=== PATIENT | female | born 1970 | race Caucasian/White ===

== ENCOUNTER 2017-03-05 11:18 | Emergency (ER) | payer MEDICAID ==
[~2017-03-05] VITALS: Ht 170.2 cm; Wt 75.0 kg
[~2017-03-05 11:18] MED LIST: PHEN-873 PO
[2017-03-05 11:41] LABS: URINE HCG NEGATIVE (NEG)
[2017-03-05] MEDS ORDERED: LIDOcaine 2% 10ml TOPICAL JELLY (Urojet) MM ONE (11:50)
[2017-03-05 11:54] LABS: CLARITY,URINE CLEAR (Clear); COLOR,URINE YELLOW (Yellow); GLUCOSE, URINE NEGATIVE (Neg); KETONES,URINE TRACE mg/dl (Neg); LEUKOCYTE ESTERASE ,URINE NEGATIVE (Neg); NITRITES, URINE NEGATIVE (Neg); OCCULT BLOOD,URINE SMALL (Neg); PH,URINE 5.5 (4.8-8.0); PROTEIN,URINE NEGATIVE (Neg); UROBILINOGEN,URINE 0.2 E.U/dL (0.2-1.0)
[2017-03-05 11:57] LABS: UA COLLECTION TYPE CLN CATCH MIDSTREAM
[2017-03-05 12:00] LABS: BACTERIA,URINE NONE SEEN /HPF (Neg); RBC,URINE 0-2 /HPF (0-2); SQUAMOUS EPITHELIAL CELL,UR FEW /LPF (FEW); WBC,URINE NONE SEEN /HPF (0-4)
[2017-03-05 12:36] VITALS: BP 152/87
== END 2017-03-05 12:30 | disposition home or self-care (01) ==
LOC: ER 11:19
DX: N94.819 Vulvodynia, unspecified (principal); Z56.0 Unemployment, unspecified; Z59.0 Homelessness; Z60.2 Problems related to living alone
CPT/HCPCS: 81001; 81025; 99284; A6449

== ENCOUNTER 2018-05-20 08:12 | Inpatient (IN) | payer MEDICAID ==
[~2018-05-20] VITALS: Ht 170.2 cm; Wt 68.2 kg
[~2018-05-20 08:12] MED LIST changes: +PHEN-786 PO; -PHEN-873 PO
[2018-05-20] MEDS ORDERED: chlordiazePOXIDE 25mg capsule PO ONE (08:25)
[2018-05-20] MEDS ORDERED: LORazepam 2 mg/ml vial IV ONE ×2 (08:25→09:15)
[2018-05-20] MEDS ORDERED: normal saline 1000ML IV soln IVB ONE (08:25)
[2018-05-20 09:12] LABS: BASOPHILS % (AUTO) 0.4 % (0-1); EOSINOPHILS % (AUTO) 0.5 % (0-6); HEMATOCRIT 38.2 % (35.0-45.0); HEMOGLOBIN 13.2 g/dl (12.0-16.0); LYMPHOCYTES # (AUTO) 0.4 X10'3 (1.1-4.8); LYMPHOCYTES % (AUTO) 4.5 % (21-51); MEAN CORPUSCULAR HEMOGLOBIN 35.2 PG (27.0-31.0); MEAN CORPUSCULAR HGB CONC 34.5 g/dL (33.0-36.5); MEAN PLATELET VOLUME 8.1 FL (7.4-10.4); MONOCYTES # (AUTO) 0.4 X10'3 (0-0.9); MONOCYTES % (AUTO) 5.3 % (2-12); NEUTROPHILS # (AUTO) 7.3 X10'3 (1.8-7.7); NEUTROPHILS % (AUTO) 89.3 % (42-75); PLATELET COUNT 131 X10'3 (140-440); RED BLOOD COUNT 3.75 X10'6 (4.20-5.60); RED CELL DISTRIBUTION WIDTH 12.2 % (11.5-14.5); WHITE BLOOD COUNT 8.2 X10'3 (4.5-11.0)
[2018-05-20 09:28] LABS: ALANINE AMINOTRANSFERASE 75 U/L (12-78); ALBUMIN 3.7 G/DL (3.4-5.0); ALBUMIN/GLOBULIN RATIO 1.1 (1.1-1.5); ALKALINE PHOSPHATASE 93 IU/L (46-116); ANION GAP 13 (8-16); ASPARTATE AMINO TRANSFERASE 91 U/L (10-37); BILIRUBIN,TOTAL 1.3 MG/DL (0.1-1.0); BLOOD UREA NITROGEN 9 MG/DL (7-18); BUN/CREATININE RATIO 14.1 (6.6-38.0); CALCIUM 8.9 MG/DL (8.5-10.1); CHLORIDE 101 MMOL/L (99-107); CREATININE 0.64 MG/DL (0.40-0.90); ETHANOL < 0.010 GM/DL (0.0-0.010); GLUCOSE 103 MG/DL (70-104); POTASSIUM 3.4 MMOL/L (3.5-5.1); SODIUM 136 MMOL/L (135-145); TOTAL CARBON DIOXIDE 22.5 MMOL/L (24-32); eGFR > 90 ML/MIN
--- NOTE | 2018-05-20 09:46 | NUR ---
patient states that she smoked meth 2-3 days ago
[2018-05-20] MEDS ORDERED: ondansetron/PF 4mg/2ml inj IV PRN (10:05)
[2018-05-20] MEDS ORDERED: acetaminophen 325mg tablet PO PRN ×2 (10:05)
[2018-05-20] MEDS ORDERED: magnesium 2GM in 50ml NS 50 ML IV PRN (10:05)
[2018-05-20] MEDS ORDERED: mag hydrox/Alum hydrox/simeth 30ml oral suspension PO PRN (10:05)
[2018-05-20] MEDS ORDERED: potassium Cl 40MEQ/NS 500ml 500 ML IV PRN ×2 (10:05)
[2018-05-20] MEDS ORDERED: magnesium Cl slow-release 64mg tablet PO PRN (10:05)
[2018-05-20] MEDS ORDERED: potassium Cl 20 mEq SR tablet PO PRN (10:05)
[2018-05-20] MEDS ORDERED: magnesium 4gm in 100ml NS 100 ML IV PRN (10:05)
[2018-05-20] MEDS ORDERED: magnesium hydroxide 30ml (MOM) UD suspension PO PRN (10:05)
[2018-05-20] MEDS ORDERED: haloperidol 5mg tablet PO PRN (10:10)
[2018-05-20] MEDS ORDERED: folic acid inj. 2 MG, thiamine inj. 100 MG, MVI, adult No.4 with vit. K 10 ML in dextro... IV SCH ×4 (10:10)
[2018-05-20] MEDS ORDERED: LORazepam 2 mg/ml vial IV PRN (10:10)
[2018-05-20] MEDS ORDERED: thiamine inj. 100 MG in normal saline 100ml IV soln 100 ML IV ONE (10:10)
[2018-05-20] MEDS ORDERED: haloperidol lactate 5mg/ml inj IM PRN (10:10)
[2018-05-20 10:24] LABS: URINE AMPHETAMINE SCREEN POSITIVE (Neg); URINE BARBITUATE SCREEN NEGATIVE (Neg); URINE BENZODIAZEPINES SCREEN NEGATIVE (Neg); URINE CANNABINOID SCREEN POSITIVE (Neg); URINE COCAINE SCREEN NEGATIVE (Neg); URINE METHADONE SCREEN NEGATIVE (Neg); URINE OPIATE SCREEN NEGATIVE (Neg); URINE PHENCYCLIDINE SCREEN NEGATIVE (Neg)
[2018-05-20] MEDS: potassium Cl 20 mEq SR tablet PO PRN ×3 (10:42→23:52)
[2018-05-20 12:22] VITALS: BP 131/90
[2018-05-20] MEDS ORDERED: NO HOME MEDS (13:43)
[2018-05-20 18:00] VITALS: BP 139/82
--- NOTE | 2018-05-20 18:12 | NUR ---
Report given to Martha GRACE
[2018-05-20 19:13] LABS: CLARITY,URINE CLEAR (Clear); COLOR,URINE YELLOW (Yellow); GLUCOSE, URINE NEGATIVE (Neg); KETONES,URINE NEGATIVE (Neg); LEUKOCYTE ESTERASE ,URINE NEGATIVE (Neg); NITRITES, URINE NEGATIVE (Neg); OCCULT BLOOD,URINE TRACE-LYSED (Neg); PROTEIN,URINE NEGATIVE (Neg); UA COLLECTION TYPE CLN CATCH MIDSTREAM; UROBILINOGEN,URINE 0.2 E.U/dL (0.2-1.0)
[2018-05-20 19:40] LABS: BACTERIA,URINE FEW /HPF (Neg); RBC,URINE 0-2 /HPF (0-2); SQUAMOUS EPITHELIAL CELL,UR FEW /LPF (FEW); WBC,URINE 0-4 /HPF (0-4)
[2018-05-20] MEDS: LORazepam 1 MG tablet PO PRN ×2 (19:41→22:08)
[2018-05-20 22:00] VITALS: BP 144/86
[2018-05-21] MEDS: LORazepam 1 MG tablet PO PRN (03:41)
--- NOTE | 2018-05-21 06:23 | NUR ---
Report given to Barry GRACE.
--- NOTE | 2018-05-21 07:12 | NUR ---
Patient in room ORTHO 4011. I have received report from Martha Boyer RN and had the opportunity to ask questions and assume patient care.
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
--- NOTE | 2018-05-21 07:37 | NUR ---
Patient in room ORTHO 4011. I have received report from Martha Boyer RN and had the opportunity to ask questions and assume patient care.
[2018-05-21] MEDS: K and/or MAG REPLACEMENT MC SCH (08:00)
[2018-05-21] MEDS: folic acid 1mg tablet PO SCH (09:33)
[2018-05-21] MEDS: multivitamins, therapeutics tablet PO SCH (09:33)
[2018-05-21] MEDS: thiamine 100mg tablet PO SCH (09:33)
[2018-05-21] MEDS: enoxaparin 40mg/0.4ml syringe SQ SCH (09:34)
[2018-05-21 10:00] VITALS: BP 99/61
--- NOTE | 2018-05-21 10:43 | NUR ---
paged Dr. Mai to see if we get a mental health consult on patient, will continue to monitor
[2018-05-21 11:08] VITALS: BP 132/82
--- NOTE | 2018-05-21 11:11 | NUR ---
Vitals done at 0600 Addendum: 05/21/18 at 1112 by Bibi Benítez STUDENT ANISHA Amended: Links added.
[2018-05-21 11:24] LABS: ALANINE AMINOTRANSFERASE 56 U/L (12-78); ALKALINE PHOSPHATASE 75 IU/L (46-116); ANION GAP 8 (8-16); ASPARTATE AMINO TRANSFERASE 58 U/L (10-37); BILIRUBIN,TOTAL 0.6 MG/DL (0.1-1.0); BLOOD UREA NITROGEN 11 MG/DL (7-18); BUN/CREATININE RATIO 24.4 (6.6-38.0); CALCIUM 8.8 MG/DL (8.5-10.1); CHLORIDE 103 MMOL/L (99-107); CREATININE 0.45 MG/DL (0.40-0.90); GLUCOSE 103 MG/DL (70-104); MAGNESIUM 1.9 MG/DL (1.5-2.4); PHOSPHORUS 3.9 MG/DL (2.3-4.5); POTASSIUM 3.9 MMOL/L (3.5-5.1); SODIUM 137 MMOL/L (135-145); TOTAL CARBON DIOXIDE 26.1 MMOL/L (24-32); TOTAL PROTEIN 6.1 G/DL (6.4-8.2); eGFR > 90 ML/MIN
[2018-05-21 11:30] LABS: BASOPHILS % (AUTO) 0.7 % (0-1); EOSINOPHILS # (AUTO) 0.2 X10'3 (0-0.9); EOSINOPHILS % (AUTO) 5.1 % (0-6); HEMATOCRIT 34.5 % (35.0-45.0); HEMOGLOBIN 11.7 g/dl (12.0-16.0); LYMPHOCYTES # (AUTO) 0.8 X10'3 (1.1-4.8); LYMPHOCYTES % (AUTO) 23.4 % (21-51); MEAN CORPUSCULAR HEMOGLOBIN 34.9 PG (27.0-31.0); MEAN CORPUSCULAR HGB CONC 33.8 g/dL (33.0-36.5); MEAN CORPUSCULAR VOLUME 103.3 FL (78-98); MONOCYTES # (AUTO) 0.3 X10'3 (0-0.9); MONOCYTES % (AUTO) 7.8 % (2-12); NEUTROPHILS # (AUTO) 2.2 X10'3 (1.8-7.7); PLATELET COUNT 100 X10'3 (140-440); RED BLOOD COUNT 3.34 X10'6 (4.20-5.60); RED CELL DISTRIBUTION WIDTH 12.3 % (11.5-14.5); WHITE BLOOD COUNT 3.6 X10'3 (4.5-11.0)
--- NOTE | 2018-05-21 17:00 | NUR ---
DR. Mai paged Patient is complaining of pain and buring while urinating, UA taken yesterday and it was negative, pt has history of cystitis any new meds that can be given, will continue to monitor
[2018-05-21 18:00] VITALS: BP 110/72
--- NOTE | 2018-05-21 18:30 | NUR ---
Patient in room ORTHO 4011. I have received report from john Reddy and had the opportunity to ask questions and assume patient care.
--- NOTE | 2018-05-21 18:41 | NUR ---
Problems reprioritized. Patient report given, questions answered & plan of care reviewed with Megan GRACE.
[2018-05-21 22:00] VITALS: BP 103/58
[2018-05-22 05:45] LABS: BASOPHILS % (AUTO) 0.7 % (0-1); EOSINOPHILS # (AUTO) 0.2 X10'3 (0-0.9); EOSINOPHILS % (AUTO) 5.3 % (0-6); HEMATOCRIT 35.3 % (35.0-45.0); LYMPHOCYTES # (AUTO) 1.2 X10'3 (1.1-4.8); LYMPHOCYTES % (AUTO) 29.9 % (21-51); MEAN CORPUSCULAR HEMOGLOBIN 34.9 PG (27.0-31.0); MEAN CORPUSCULAR VOLUME 102.6 FL (78-98); MEAN PLATELET VOLUME 9.2 FL (7.4-10.4); MONOCYTES # (AUTO) 0.3 X10'3 (0-0.9); MONOCYTES % (AUTO) 8.7 % (2-12); NEUTROPHILS # (AUTO) 2.2 X10'3 (1.8-7.7); NEUTROPHILS % (AUTO) 55.4 % (42-75); PLATELET COUNT 106 X10'3 (140-440); RED BLOOD COUNT 3.44 X10'6 (4.20-5.60); RED CELL DISTRIBUTION WIDTH 12.4 % (11.5-14.5)
[2018-05-22 05:58] LABS: ALANINE AMINOTRANSFERASE 69 U/L (12-78); ALBUMIN 3.1 G/DL (3.4-5.0); ALKALINE PHOSPHATASE 77 IU/L (46-116); ANION GAP 9 (8-16); ASPARTATE AMINO TRANSFERASE 83 U/L (10-37); BILIRUBIN,TOTAL 0.4 MG/DL (0.1-1.0); BLOOD UREA NITROGEN 9 MG/DL (7-18); BUN/CREATININE RATIO 19.6 (6.6-38.0); CALCIUM 9.3 MG/DL (8.5-10.1); CHLORIDE 103 MMOL/L (99-107); CREATININE 0.46 MG/DL (0.40-0.90); GLUCOSE 88 MG/DL (70-104); PHOSPHORUS 4.6 MG/DL (2.3-4.5); POTASSIUM 3.9 MMOL/L (3.5-5.1); SODIUM 138 MMOL/L (135-145); TOTAL CARBON DIOXIDE 26.1 MMOL/L (24-32); TOTAL PROTEIN 6.3 G/DL (6.4-8.2); eGFR > 90 ML/MIN
[2018-05-22 06:00] VITALS: BP 102/67
--- NOTE | 2018-05-22 07:06 | NUR ---
Patient in room ORTHO 4011. I have received report from Megan GRACE and had the opportunity to ask questions and assume patient care.
[2018-05-22] MEDS: K and/or MAG REPLACEMENT MC SCH (07:24)
[2018-05-22] MEDS: enoxaparin 40mg/0.4ml syringe SQ SCH (08:31)
[2018-05-22] MEDS: folic acid 1mg tablet PO SCH (08:32)
[2018-05-22] MEDS: multivitamins, therapeutics tablet PO SCH (08:33)
[2018-05-22] MEDS: thiamine 100mg tablet PO SCH (08:33)
[2018-05-22] MEDS ORDERED: MULT-1179 PO (09:26)
[2018-05-22] MEDS ORDERED: thiamine tablet PO (09:26)
[2018-05-22] MEDS ORDERED: FOLI1TAB16 PO (09:26)
[2018-05-22 10:00] VITALS: BP 122/68
[2018-05-22] MEDS: LORazepam 1 MG tablet PO PRN (11:18)
--- NOTE | 2018-05-22 14:30 | NUR ---
Problems reprioritized. Patient report given, questions answered & plan of care reviewed with Sumi GRACE.
[2018-05-22 18:00] VITALS: BP 104/71
--- NOTE | 2018-05-22 18:38 | NUR ---
Patient in room ORTHO 4011. I have received report from LESLY MEEHAN and had the opportunity to ask questions and assume patient care.
--- NOTE | 2018-05-22 18:54 | NUR ---
[facility] IS SEEING PT
[2018-05-22 22:00] VITALS: BP 124/60
[2018-05-23 05:00] VITALS: BP 122/71
--- NOTE | 2018-05-23 06:42 | NUR ---
Problems reprioritized. Patient report given, questions answered & plan of care reviewed with LESLY GUERRIER.
[2018-05-23] MEDS: K and/or MAG REPLACEMENT MC SCH (07:53)
[2018-05-23] MEDS: multivitamins, therapeutics tablet PO SCH (07:57)
[2018-05-23] MEDS: LORazepam 1 MG tablet PO PRN (07:58)
[2018-05-23] MEDS: enoxaparin 40mg/0.4ml syringe SQ SCH (07:58)
[2018-05-23] MEDS: thiamine 100mg tablet PO SCH (07:58)
[2018-05-23] MEDS: folic acid 1mg tablet PO SCH (07:58)
[2018-05-23 10:00] VITALS: BP 116/71
[2018-05-23 17:00] VITALS: BP 117/54
--- NOTE | 2018-05-23 18:20 | NUR ---
Patient in room ORTHO 4011. I have received report from LESLY Crowell and had the opportunity to ask questions and assume patient care.
--- NOTE | 2018-05-23 18:48 | NUR ---
Report to Karen GRACE
--- NOTE | 2018-05-23 18:50 | NUR ---
I tried calling Dr. Mai regarding the active discharge order and that patient's telemetry was dc'd earlier in the day for her discharge. He did not call back; per the day nurse patient's d/c is on hold due to still needing to talk to social worker palliative care/ dcp about plan for d/c and help in the community.
[2018-05-23 20:58] LABS: CLARITY,URINE SLIGHTLY CLOUDY (Clear); COLOR,URINE YELLOW (Yellow); GLUCOSE, URINE NEGATIVE (Neg); KETONES,URINE NEGATIVE (Neg); LEUKOCYTE ESTERASE ,URINE SMALL (Neg); NITRITES, URINE NEGATIVE (Neg); OCCULT BLOOD,URINE SMALL (Neg); PH,URINE 6.5 (4.8-8.0); PROTEIN,URINE NEGATIVE (Neg); UROBILINOGEN,URINE 0.2 E.U/dL (0.2-1.0)
[2018-05-23 21:06] LABS: UA COLLECTION TYPE NON-SPECIFIED
[2018-05-23 21:07] LABS: BACTERIA,URINE 1+ /HPF (Neg); RBC,URINE 0-2 /HPF (0-2); SQUAMOUS EPITHELIAL CELL,UR FEW /LPF (FEW)
[2018-05-23 22:00] VITALS: BP 104/70
[2018-05-24 05:00] VITALS: BP 107/66
--- NOTE | 2018-05-24 06:29 | NUR ---
Problems reprioritized. Patient report given, questions answered & plan of care reviewed with LESLY Crowell.
[2018-05-24] MEDS: enoxaparin 40mg/0.4ml syringe SQ SCH (08:00)
[2018-05-24] MEDS: K and/or MAG REPLACEMENT MC SCH (08:00)
[2018-05-24] MEDS: folic acid 1mg tablet PO SCH (09:30)
[2018-05-24] MEDS: thiamine 100mg tablet PO SCH (09:30)
[2018-05-24] MEDS: multivitamins, therapeutics tablet PO SCH (09:30)
[2018-05-24] MEDS ORDERED: CEFD300C3 PO (09:45)
[2018-05-24 10:00] VITALS: BP 124/77
== END 2018-05-24 12:25 | disposition home or self-care (01) | DRG 42 ==
LOC: ER 08:13 → ED HOLD 10:01 → ORTHO 4S 11:45
PROVIDERS: ADMIT Hospitalist; ATTEND Family Medicine
DX: G31.2 Degeneration of nervous system due to alcohol (principal); N30.10 Interstitial cystitis (chronic) without hematuria; E03.9 Hypothyroidism, unspecified; F10.239 Alcohol dependence with withdrawal, unspecified; F12.10 Cannabis abuse, uncomplicated; F14.10 Cocaine abuse, uncomplicated; F15.10 Other stimulant abuse, uncomplicated; F32.9 Major depressive disorder, single episode, unspecified; F29 Unspecified psychosis not due to a substance or known physiological condition; F17.210 Nicotine dependence, cigarettes, uncomplicated; R00.0 Tachycardia, unspecified; Z60.2 Problems related to living alone; Z59.0 Homelessness; Z56.0 Unemployment, unspecified; Z79.899 Other long term (current) drug therapy
CPT/HCPCS: 36415; 71045; 80053; 80305; 80320; 81001; 82948; 83735; 84100; 84439; 84443; 85025; 87070; 87088; 93005; 96374; 96375; 97116; 97162; 97530; 99285; G0378; J1650; J2060; J3411; J3490; J7030; J7060

== ENCOUNTER 2018-12-27 00:49 | Emergency (ER) | payer MEDICAID ==
[~2018-12-27] VITALS: Ht 170.2 cm; Wt 62.3 kg
[~2018-12-27 00:49] MED LIST changes: +FOLI1TAB16 PO; +GABA-530 PO; +MULT-1179 PO; -PHEN-786 PO; +thiamine tablet PO
[2018-12-27] MEDS ORDERED: normal saline 1000ML IV soln IVB ONE (01:40)
[2018-12-27] MEDS ORDERED: LORazepam 2 mg/ml vial IV ONE (01:40)
--- NOTE | 2018-12-27 01:58 | NUR ---
PT JUST GIVEN ATIVAN 1 MG IV AND 1 LITER NS STARTED.
[2018-12-27] MEDS ORDERED: normal saline 1000ml 1,000 ML IVB ONE (02:18)
[2018-12-27] MEDS ORDERED: LORazepam 2 mg/ml vial IM ONE (02:20)
[2018-12-27 02:55] VITALS: BP 144/83
--- NOTE | 2018-12-27 02:55 | NUR ---
2ND LITER NS ORDERED AND JUST HUNG AND ONE MORE DOSE ATIVAN 1 MG IV. PT UP TO VOID USING BSC. SBA D/T ATAXIA. STABLE VS.
[2018-12-27] MEDS ORDERED: CHLO25CA10 PO (03:07)
== END 2018-12-27 04:12 | disposition home or self-care (01) ==
LOC: ER 00:50
DX: F10.230 Alcohol dependence with withdrawal, uncomplicated (principal); F12.90 Cannabis use, unspecified, uncomplicated; Z59.0 Homelessness; Z56.0 Unemployment, unspecified; Z79.899 Other long term (current) drug therapy; Y90.9 Presence of alcohol in blood, level not specified
CPT/HCPCS: 96374; 96376; 99284; J2060; J7030

== ENCOUNTER 2019-02-01 04:53 | Emergency (ER) | payer MEDICAID ==
[~2019-02-01] VITALS: Ht 170.2 cm; Wt 58.8 kg
[~2019-02-01 04:53] MED LIST changes: +CHLO25CA10 PO
[2019-02-01] MEDS ORDERED: GABA-532 PO (08:41)
[2019-02-01] MEDS ORDERED: LORazepam 2 mg/ml vial IV ONE (09:35)
[2019-02-01] MEDS ORDERED: normal saline 1000ML IV soln IV ONE (09:35)
[2019-02-01] MEDS ORDERED: thiamine 100mg/ml 2ml inj. IV ONE (09:35)
[2019-02-01 11:13] VITALS: BP 124/83
== END 2019-02-01 13:15 | disposition home or self-care (01) ==
LOC: ER 04:54
DX: F10.10 Alcohol abuse, uncomplicated (principal); F17.200 Nicotine dependence, unspecified, uncomplicated; F12.90 Cannabis use, unspecified, uncomplicated; Z60.2 Problems related to living alone; Z59.0 Homelessness; Z56.0 Unemployment, unspecified; Z79.899 Other long term (current) drug therapy; Y90.9 Presence of alcohol in blood, level not specified
CPT/HCPCS: 96374; 96375; 99283; J2060; J3411; J7030

== ENCOUNTER 2019-03-06 16:11 | Emergency (ER) | payer MEDICAID ==
[~2019-03-06] VITALS: Ht 170.2 cm; Wt 62.7 kg
[~2019-03-06 16:11] MED LIST changes: +GABA-532 PO
[2019-03-06] MEDS ORDERED: NO HOME MEDS (18:28)
--- NOTE | 2019-03-06 18:30 | NUR ---
Assumed care of patient, pt. laying in bed at this time appears calm and cooperative. She is awiting evaluation by provider at this time. Pt. then sits up to eat dinner.
--- NOTE | 2019-03-06 20:05 | NUR ---
Dr. Caldwellfs over to evaluate pt. at bedside, pt. presents with anxiety and lacey tamayo MD aware.
[2019-03-06] MEDS ORDERED: LORazepam 1 MG tablet PO ONE (20:10)
[2019-03-06] MEDS ORDERED: CHLO25CA10 PO (20:13)
--- NOTE | 2019-03-06 20:30 | NUR ---
1:1 assessment completed at pt's bedside. She remains anxious with slight fine tremors r/t previous consumption of ETOH. Medication provided per MD orders. RR are even and unlabored. Pt. is cooperative with assessment, she denies any current or history of S/I. 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 Pt. states, "It's different now because I have a plan, I want to detox and go to a Sober Living." She reports that she is currently homeless and living on the streets. Pt. denies any A/V/FISHER and no delustional statements made. Pt. lays down to rest, fluids encouraged, will continue to monitor.
[2019-03-06] MEDS ORDERED: chlordiazePOXIDE 25mg capsule PO ONE (21:15)
--- NOTE | 2019-03-06 22:17 | NUR ---
Pt. up to use the BR at this time, she is able to ambulate independently with steady gait. Per CRN, discharge plan is to call taxi for pt., and get her medication prescription filled for Alvaro at [facility]. Pt. will then have residential recycle driver take her to where ever she stays in [place], she does not know the address. Pt. in agreeance with plan.
--- NOTE | 2019-03-06 22:31 | NUR ---
Darvin called and on the way at this time, will obtain pt. belongings.
--- NOTE | 2019-03-06 22:55 | NUR ---
Reviewed discharge instructions with pt. and provided resources, she reports understanding. Pt. is able to contract for safety and will F/U as needed. Pt. accompanied to the taxi via this nurse and security.
[2019-03-06 22:58] VITALS: BP 124/90
== END 2019-03-06 23:08 | disposition home or self-care (01) ==
LOC: ER 16:12
DX: F10.239 Alcohol dependence with withdrawal, unspecified (principal); F12.90 Cannabis use, unspecified, uncomplicated; Z60.2 Problems related to living alone; Z59.0 Homelessness; Z56.0 Unemployment, unspecified; Z79.899 Other long term (current) drug therapy; Y90.9 Presence of alcohol in blood, level not specified
CPT/HCPCS: 99283

== ENCOUNTER 2019-04-25 09:53 | Emergency (ER) | payer MEDICAID ==
[~2019-04-25] VITALS: Ht 170.2 cm; Wt 62.7 kg
[~2019-04-25 09:53] MED LIST changes: -FOLI1TAB16 PO; -GABA-530 PO; -GABA-532 PO; -MULT-1179 PO; +NO HOME MEDS; -thiamine tablet PO
[2019-04-25 10:44] VITALS: BP 132/87
--- NOTE | 2019-04-25 11:10 | NUR ---
PT. LEFT AMA BEFORE ANY CHARTING/DOCUMENTATION COULD BE DONE.
== END 2019-04-25 11:11 | disposition left against medical advice (07) ==
LOC: ER 09:54
DX: F10.129 Alcohol abuse with intoxication, unspecified (principal); Z53.21 Procedure and treatment not carried out due to patient leaving prior to being seen by health care provider; Y90.9 Presence of alcohol in blood, level not specified

== ENCOUNTER 2020-03-01 08:06 | Emergency (ER) | payer MEDICAID ==
[~2020-03-01] VITALS: Ht 172.7 cm; Wt 59.0 kg
[2020-03-01] MEDS ORDERED: normal saline 1000ML IV soln IVB ONE (08:45)
[2020-03-01] MEDS ORDERED: LORazepam 2 mg/ml vial IV ONE (08:45)
[2020-03-01] MEDS ORDERED: chlordiazePOXIDE 25mg capsule PO ONE (08:45)
[2020-03-01 09:35] LABS: BASOPHILS % (AUTO) 0.7 % (0-1); EOSINOPHILS % (AUTO) 0.4 % (0-6); HEMATOCRIT 36.2 % (35.0-45.0); LYMPHOCYTES # (AUTO) 0.6 X10'3 (1.1-4.8); LYMPHOCYTES % (AUTO) 13.6 % (21-51); MEAN CORPUSCULAR HGB CONC 33.1 g/dL (33.0-36.5); MEAN PLATELET VOLUME 6.8 FL (7.4-10.4); MONOCYTES # (AUTO) 0.4 X10'3 (0-0.9); NEUTROPHILS # (AUTO) 3.2 X10'3 (1.8-7.7); NEUTROPHILS % (AUTO) 75.3 % (42-75); PLATELET COUNT 196 X10'3 (140-440); RED BLOOD COUNT 3.73 X10'6 (4.20-5.60); RED CELL DISTRIBUTION WIDTH 16.2 % (11.5-14.5); WHITE BLOOD COUNT 4.3 X10'3 (4.5-11.0)
[2020-03-01 09:46] LABS: CLARITY,URINE SLIGHTLY CLOUDY (Clear); COLOR,URINE YELLOW (Yellow); GLUCOSE, URINE NEGATIVE (Neg); KETONES,URINE TRACE mg/dl (Neg); LEUKOCYTE ESTERASE ,URINE TRACE (Neg); NITRITES, URINE NEGATIVE (Neg); OCCULT BLOOD,URINE NEGATIVE (Neg); PH,URINE 6.5 (4.8-8.0); PROTEIN,URINE 100 mg/dl (Neg)
[2020-03-01 09:52] LABS: ALANINE AMINOTRANSFERASE 46 U/L (12-78); ALBUMIN 3.2 G/DL (3.4-5.0); ALBUMIN/GLOBULIN RATIO 0.9 (1.1-1.5); ALKALINE PHOSPHATASE 115 IU/L (46-116); ANION GAP 13 (8-16); ASPARTATE AMINO TRANSFERASE 66 U/L (10-37); BILIRUBIN,TOTAL 0.4 MG/DL (0.1-1.0); BLOOD UREA NITROGEN 6 MG/DL (7-18); BUN/CREATININE RATIO 8.8 (6.6-38.0); CALCIUM 8.1 MG/DL (8.5-10.1); CHLORIDE 107 MMOL/L (99-107); CREATININE 0.68 MG/DL (0.40-0.90); GLUCOSE 87 MG/DL (70-104); POTASSIUM 3.6 MMOL/L (3.5-5.1); SODIUM 144 MMOL/L (135-145); TOTAL CARBON DIOXIDE 24.3 MMOL/L (24-32); TOTAL PROTEIN 6.9 G/DL (6.4-8.2); UA COLLECTION TYPE CLN CATCH MIDSTREAM; eGFR > 90 ML/MIN
[2020-03-01 09:53] LABS: RBC,URINE NONE SEEN /HPF (0-2); WBC,URINE TNTC /HPF (0-4)
[2020-03-01 09:54] LABS: BACTERIA,URINE 1+ /HPF (Neg); HYALINE CASTS >30 /LPF (NEGATIVE); MUCUS STRANDS NONE SEEN /LPF (Neg); SQUAMOUS EPITHELIAL CELL,UR FEW /LPF (FEW); URINE AMPHETAMINE SCREEN POSITIVE (Neg); URINE BARBITUATE SCREEN NEGATIVE (Neg); URINE BENZODIAZEPINES SCREEN NEGATIVE (Neg); URINE CANNABINOID SCREEN POSITIVE (Neg); URINE COCAINE SCREEN NEGATIVE (Neg); URINE METHADONE SCREEN NEGATIVE (Neg); URINE OPIATE SCREEN NEGATIVE (Neg); URINE PHENCYCLIDINE SCREEN NEGATIVE (Neg)
[2020-03-01 09:55] LABS: COARSE GRANULAR CAST 0-3 /LPF (NEGATIVE)
[2020-03-01] MEDS ORDERED: CefTRIAXone/D5W-Rocephin 1gm 50 ML IV ONE (10:05)
[2020-03-01] MEDS ORDERED: ONDA4TAB12 PO (10:09)
[2020-03-01] MEDS ORDERED: NITR100C6 PO (10:09)
[2020-03-01] MEDS ORDERED: GABA-530 PO (10:09)
--- NOTE | 2020-03-01 11:10 | NUR ---
PT WALKED TO RESTROOM WITH NO ASSIST.
[2020-03-01] MEDS ORDERED: LORazepam 2 mg/ml vial IV STA (11:28)
--- NOTE | 2020-03-01 11:29 | NUR ---
patient tachy 120,dr march aware.ordered ativan 1mh iv stat.
[2020-03-01 12:08] VITALS: BP 156/98
== END 2020-03-01 12:11 | disposition home or self-care (01) ==
LOC: ER 08:07
DX: N39.0 Urinary tract infection, site not specified (principal); F10.129 Alcohol abuse with intoxication, unspecified; R25.1 Tremor, unspecified; F12.90 Cannabis use, unspecified, uncomplicated; Z79.899 Other long term (current) drug therapy; Z59.0 Homelessness; Z56.0 Unemployment, unspecified; Z72.89 Other problems related to lifestyle; Z60.9 Problem related to social environment, unspecified; Y90.6 Blood alcohol level of 120-199 mg/100 ml
CPT/HCPCS: 36415; 80053; 80305; 80320; 81001; 85025; 87088; 93005; 96361; 96365; 96375; 96376; 99285; J0696; J2060; J7030

== ENCOUNTER 2020-05-07 12:55 | Inpatient (IN) | payer MEDICAID ==
[2020-05-07] VITALS (11 sets, daily range): BP systolic 106–149; BP diastolic 67–86
[~2020-05-07] VITALS: Ht 170.2 cm; Wt 66.8 kg
[~2020-05-07 12:55] MED LIST changes: +GABA-530 PO; +NITR100C6 PO; +ONDA4TAB12 PO
[2020-05-07] MEDS ORDERED: normal saline 1000ML IV soln IVB ONE ×2 (13:05→13:15)
[2020-05-07] MEDS ORDERED: phenobarbital inj 260 MG in normal saline 100ml IV soln 100 ML IV ONE (13:15)
[2020-05-07] MEDS ORDERED: magnesium oxide 400mg tablet PO ONE (13:15)
[2020-05-07] MEDS ORDERED: thiamine 100mg tablet PO ONE (13:15)
[2020-05-07] MEDS ORDERED: ondansetron/PF 4mg/2ml inj IV ONE (13:25)
[2020-05-07 13:43] LABS: CLARITY,URINE TURBID (Clear); COLOR,URINE BROWN (Yellow); GLUCOSE, URINE NEGATIVE (Neg); KETONES,URINE 15 mg/dl (Neg); LEUKOCYTE ESTERASE ,URINE SMALL (Neg); LYMPHOCYTES # (AUTO) 0.3 X10'3 (1.1-4.8); MONOCYTES # (AUTO) 0.5 X10'3 (0-0.9); NITRITES, URINE POSITIVE (Neg); OCCULT BLOOD,URINE MODERATE (Neg); PH,URINE 5.5 (4.8-8.0); PROTEIN,URINE 100 mg/dl (Neg); UROBILINOGEN,URINE >=8.0 E.U/dL (0.2-1.0)
[2020-05-07 13:44] LABS: UA COLLECTION TYPE OTHER
[2020-05-07 13:45] LABS: BASOPHILS % (AUTO) 0.5 % (0-1); EOSINOPHILS % (AUTO) 0.2 % (0-6); MEAN CORPUSCULAR HEMOGLOBIN 32.2 PG (27.0-31.0); MEAN CORPUSCULAR VOLUME 97.5 FL (78-98); MEAN PLATELET VOLUME 8.1 FL (7.4-10.4); MONOCYTES % (AUTO) 15.3 % (2-12); NEUTROPHILS # (AUTO) 2.4 X10'3 (1.8-7.7); PLATELET COUNT 123 X10'3 (140-440); RED BLOOD COUNT 2.13 X10'6 (4.20-5.60); RED CELL DISTRIBUTION WIDTH 21.5 % (11.5-14.5); WHITE BLOOD COUNT 3.2 X10'3 (4.5-11.0)
[2020-05-07 13:50] LABS: BACTERIA,URINE 4+ /HPF (Neg)
[2020-05-07 13:51] LABS: COARSE GRANULAR CAST 0-3 /LPF (NEGATIVE)
[2020-05-07 13:52] LABS: HEMATOCRIT 20.8 % (35.0-45.0); HEMOGLOBIN 6.9 g/dl (12.0-16.0); MUCUS STRANDS FEW /LPF (Neg); SQUAMOUS EPITHELIAL CELL,UR FEW /LPF (FEW)
[2020-05-07 13:54] LABS: ALANINE AMINOTRANSFERASE 89 U/L (12-78); ALBUMIN 3.1 G/DL (3.4-5.0); ALBUMIN/GLOBULIN RATIO 0.9 (1.1-1.5); ALKALINE PHOSPHATASE 151 IU/L (46-116); ANION GAP 19 (8-16); ASPARTATE AMINO TRANSFERASE 128 U/L (10-37); BILIRUBIN,TOTAL 2.4 MG/DL (0.1-1.0); BLOOD UREA NITROGEN 14 MG/DL (7-18); BUN/CREATININE RATIO 15.1 (6.6-38.0); CALCIUM 8.4 MG/DL (8.5-10.1); CHLORIDE 95 MMOL/L (99-107); CREATININE 0.93 MG/DL (0.40-0.90); ETHANOL < 0.010 GM/DL (0.0-0.010); GLUCOSE 117 MG/DL (70-104); MAGNESIUM 1.4 MG/DL (1.5-2.4); SODIUM 138 MMOL/L (135-145); TOTAL CARBON DIOXIDE 24.1 MMOL/L (24-32); TOTAL PROTEIN 6.6 G/DL (6.4-8.2); eGFR 64 ML/MIN
[2020-05-07 13:56] LABS: URINE AMPHETAMINE SCREEN POSITIVE (Neg); URINE BARBITUATE SCREEN NEGATIVE (Neg); URINE BENZODIAZEPINES SCREEN NEGATIVE (Neg); URINE CANNABINOID SCREEN POSITIVE (Neg); URINE COCAINE SCREEN NEGATIVE (Neg); URINE METHADONE SCREEN NEGATIVE (Neg); URINE OPIATE SCREEN NEGATIVE (Neg); URINE PHENCYCLIDINE SCREEN NEGATIVE (Neg)
[2020-05-07 13:59] LABS: POTASSIUM 2.3 MMOL/L (3.5-5.1)
[2020-05-07] MEDS ORDERED: magnesium 2GM in 50ml NS 50 ML IV ONE (14:00)
[2020-05-07] MEDS ORDERED: thiamine inj. 100 MG in normal saline 100ml IV soln 99 ML IV ONE (14:00)
[2020-05-07 14:01] LABS: RBC,URINE 0-2 /HPF (0-2); WBC,URINE 50-100 /HPF (0-4)
[2020-05-07] MEDS: potassium Cl 10 mEq/100mL bag IV SCH ×2 (14:09→15:32)
[2020-05-07 14:14] LABS: PARTIAL THROMBOPLASTIN TIME 25 SECONDS (22-32)
[2020-05-07 14:17] LABS: ANISOCYTOSIS 3+; NUCLEATED RED BLOOD CELLS 1 /100WBC (0-0); PLATELET ESTIMATE DECREASED; POLYCHROMASIA 1+; STOMATOCYTES 2+; TOTAL CELLS COUNTED 100
[2020-05-07 14:18] LABS: TARGET CELLS FEW
[2020-05-07] MEDS ORDERED: CefTRIAXone 250MG inj IM ONE (14:30)
[2020-05-07] MEDS ORDERED: phenobarbital inj 130 MG in normal saline 100ml IV soln 99 ML IV ONE (15:35)
[2020-05-07] MEDS ORDERED: morphine 2 MG/ML inj. syringe IV PRN ×2 (15:45)
[2020-05-07] MEDS ORDERED: magnesium 2GM in 50ml NS 50 ML IV PRN (15:45)
[2020-05-07] MEDS ORDERED: mag hydrox/Alum hydrox/simeth 30ml oral suspension PO PRN (15:45)
[2020-05-07] MEDS ORDERED: pantoprazole 40 MG vial IV ONE (15:45)
[2020-05-07] MEDS ORDERED: acetaminophen 650mg rectal suppository RC PRN (15:45)
[2020-05-07] MEDS ORDERED: ondansetron/PF 4mg/2ml inj IV PRN (15:45)
[2020-05-07] MEDS ORDERED: HYDROcodone/acetaminophen 5mg/325mg tablet PO PRN (15:45)
[2020-05-07] MEDS ORDERED: potassium Cl 40MEQ/1/2NS 520ml 520 ML IV PRN ×2 (15:45)
[2020-05-07] MEDS ORDERED: HYDROcodone/acetaminophen 10/325mg tab PO PRN (15:45)
[2020-05-07] MEDS ORDERED: magnesium 4gm in 100ml NS 100 ML IV PRN (15:45)
[2020-05-07] MEDS ORDERED: diphenhydrAMINE 25mg capsule PO PRN (15:45)
[2020-05-07] MEDS ORDERED: octreotide inj. 500 MCG in normal saline 100ml IV soln 100 ML IV SCH (15:45)
[2020-05-07] MEDS ORDERED: acetaminophen 325mg tablet PO PRN ×2 (15:45)
[2020-05-07] MEDS ORDERED: octreotide 100mcg/1 ml ampule SQ ONE (15:45)
[2020-05-07] MEDS ORDERED: potassium Cl 20 mEq SR tablet PO PRN (15:45)
[2020-05-07] MEDS ORDERED: magnesium hydroxide 30ml (MOM) UD suspension PO PRN (15:45)
[2020-05-07 16:07] LABS: HEMOGLOBIN A1C 5.1 % (4.5-6.2)
--- NOTE | 2020-05-07 16:08 | NUR ---
Pt transported to GI Lab with 2 RNs.
[2020-05-07] MEDS ORDERED: LIDOcaine Viscous 15ml cup ONE (16:13)
[2020-05-07] MEDS ORDERED: MIDAZolam 1 MG/ML 5ML VIAL ONE (16:13)
[2020-05-07] MEDS ORDERED: fentaNYL/PF 50MCG/1 ML 2ML syringe ONE (16:13)
--- NOTE | 2020-05-07 17:42 | NUR ---
back to bed 16 from gi lab.
[2020-05-07] MEDS: normal saline 1000ml 1,000 ML IV SCH (17:51)
[2020-05-07] MEDS: pantoprazole 40MG/NS 100ML BAG 100 ML IV SCH ×2 (18:15→23:03)
--- NOTE | 2020-05-07 18:28 | NUR ---
Pt resting in bed. 1st unit of blood hung, 15 min vital check just done by LESLY Crowder
[2020-05-07] MEDS: K and/or MAG REPLACEMENT MC SCH (20:00)
[2020-05-07 22:15] LABS: MEAN PLATELET VOLUME 8.2 FL (7.4-10.4)
[2020-05-07 22:17] LABS: MEAN CORPUSCULAR HEMOGLOBIN 31.4 PG (27.0-31.0); MEAN CORPUSCULAR HGB CONC 33.3 g/dL (33.0-36.5); MEAN CORPUSCULAR VOLUME 94.2 FL (78-98); PLATELET COUNT 107 X10'3 (140-440); RED CELL DISTRIBUTION WIDTH 20.8 % (11.5-14.5)
[2020-05-07 22:20] LABS: ALANINE AMINOTRANSFERASE 71 U/L (12-78); ALBUMIN 2.6 G/DL (3.4-5.0); ALBUMIN/GLOBULIN RATIO 0.9 (1.1-1.5); ALKALINE PHOSPHATASE 119 IU/L (46-116); ANION GAP 17 (8-16); ASPARTATE AMINO TRANSFERASE 110 U/L (10-37); BILIRUBIN,TOTAL 1.6 MG/DL (0.1-1.0); BLOOD UREA NITROGEN 11 MG/DL (7-18); BUN/CREATININE RATIO 17.7 (6.6-38.0); CALCIUM 7.5 MG/DL (8.5-10.1); CHLORIDE 102 MMOL/L (99-107); CREATININE 0.62 MG/DL (0.40-0.90); GLUCOSE 110 MG/DL (70-104); SODIUM 140 MMOL/L (135-145); TOTAL CARBON DIOXIDE 21.2 MMOL/L (24-32); TOTAL PROTEIN 5.5 G/DL (6.4-8.2); eGFR > 90 ML/MIN
[2020-05-07 22:25] LABS: POTASSIUM 2.8 MMOL/L (3.5-5.1)
[2020-05-07 22:29] LABS: HEMATOCRIT 20.7 % (35.0-45.0); HEMOGLOBIN 6.9 g/dl (12.0-16.0)
[2020-05-07 22:52] LABS: ANISOCYTOSIS 3+; NUCLEATED RED BLOOD CELLS 6 /100WBC (0-0); PLATELET ESTIMATE DECREASED; POLYCHROMASIA 1+; TARGET CELLS FEW; TOTAL CELLS COUNTED 100
[2020-05-07 22:53] LABS: STOMATOCYTES 2+
--- NOTE | 2020-05-08 01:13 | NUR ---
per Dr Barrera its ok for patient to get the morning lab draw after her transfusion.
--- NOTE | 2020-05-08 01:15 | NUR ---
patient had a critical potassium of 2.8, its been replaced now per protocol.
[2020-05-08] MEDS: normal saline 1000ml 1,000 ML IV SCH ×3 (01:45→22:09)
[2020-05-08 02:00] VITALS: BP 143/97
[2020-05-08] MEDS: pantoprazole 40MG/NS 100ML BAG 100 ML IV SCH ×5 (03:08→22:08)
[2020-05-08] MEDS ORDERED: LORazepam 2 mg/ml vial IV PRN (03:45)
--- NOTE | 2020-05-08 03:49 | NUR ---
patient agitated, physician notified and an order for a sitter and Ativan has been received and entered.
[2020-05-08] MEDS ORDERED: dextrose 50%-water 50ml dispensing syringe IV PRN (05:55)
[2020-05-08] MEDS ORDERED: haloperidol lactate 5mg/ml inj IM PRN (05:55)
[2020-05-08] MEDS ORDERED: haloperidol 5mg tablet PO PRN (05:55)
[2020-05-08 06:00] VITALS: BP 148/74
--- NOTE | 2020-05-08 06:12 | NUR ---
report given to and discussed with LESLY Crowder.
[2020-05-08 06:27] LABS: OCCULT BLOOD STOOL NEGATIVE (Neg)
[2020-05-08] MEDS: LORazepam 2 mg/ml vial IV PRN (06:27)
[2020-05-08 07:09] LABS: BASOPHILS % (AUTO) 0.6 % (0-1); LYMPHOCYTES # (AUTO) 0.8 X10'3 (1.1-4.8); MEAN CORPUSCULAR HEMOGLOBIN 31.1 PG (27.0-31.0); MONOCYTES # (AUTO) 0.5 X10'3 (0-0.9); NEUTROPHILS # (AUTO) 3.1 X10'3 (1.8-7.7); PLATELET COUNT 124 X10'3 (140-440); WHITE BLOOD COUNT 4.5 X10'3 (4.5-11.0)
--- NOTE | 2020-05-08 07:10 | NUR ---
Patient sitting upright in bed attempting to get out of bed. 1mg of ativan given. Which caused the patient to become more agitated Patient responding to verbal and auditory stimulus. Nursing staff attempted to help patient back into bed but began to kick staff and yell out. Patient continued to pull on IV lines and attempt to take tele off. Discussed situation with Charge nurse. IM Haldol prepared and administered into left gluteal.
[2020-05-08 07:11] LABS: EOSINOPHILS % (AUTO) 0.9 % (0-6); HEMATOCRIT 25.7 % (35.0-45.0); HEMOGLOBIN 8.7 g/dl (12.0-16.0); LYMPHOCYTES % (AUTO) 18.2 % (21-51); MEAN CORPUSCULAR HGB CONC 33.8 g/dL (33.0-36.5); MEAN CORPUSCULAR VOLUME 92.1 FL (78-98); MEAN PLATELET VOLUME 8.2 FL (7.4-10.4); MONOCYTES % (AUTO) 11.5 % (2-12); NEUTROPHILS % (AUTO) 68.8 % (42-75); RED BLOOD COUNT 2.79 X10'6 (4.20-5.60); RED CELL DISTRIBUTION WIDTH 20.5 % (11.5-14.5)
[2020-05-08 07:18] LABS: ALANINE AMINOTRANSFERASE 83 U/L (12-78); ALBUMIN 2.8 G/DL (3.4-5.0); ALBUMIN/GLOBULIN RATIO 0.8 (1.1-1.5); ALKALINE PHOSPHATASE 127 IU/L (46-116); ANION GAP 16 (8-16); ASPARTATE AMINO TRANSFERASE 113 U/L (10-37); BILIRUBIN,TOTAL 1.7 MG/DL (0.1-1.0); BLOOD UREA NITROGEN 7 MG/DL (7-18); BUN/CREATININE RATIO 12.3 (6.6-38.0); CALCIUM 8.1 MG/DL (8.5-10.1); CHLORIDE 103 MMOL/L (99-107); CHOLESTEROL 149 MG/DL (0-200); CREATININE 0.57 MG/DL (0.40-0.90); GLUCOSE 94 MG/DL (70-104); HDL CHOLESTEROL 37 MG/DL (35-60); LDL CHOLESTEROL 85 MG/DL (50-100); MAGNESIUM 1.8 MG/DL (1.5-2.4); PHOSPHORUS 1.3 MG/DL (2.3-4.5); POTASSIUM 3.3 MMOL/L (3.5-5.1); SODIUM 140 MMOL/L (135-145); TOTAL CARBON DIOXIDE 21.1 MMOL/L (24-32); TOTAL PROTEIN 6.1 G/DL (6.4-8.2); TRIGLYCERIDES 107 MG/DL (20-135); eGFR > 90 ML/MIN
--- NOTE | 2020-05-08 07:39 | NUR ---
notified. PAGER ID: [phone] MESSAGE: re: Chastity burgos. [id number]. FYI. Pt. given Ativan for agitation and kicking staff, ineffective. Haldol IM given to patient. Pt now in restraints. Thanks. Lakesha. [phone]
[2020-05-08] MEDS: K and/or MAG REPLACEMENT MC SCH ×2 (08:00→20:00)
[2020-05-08 09:14] LABS: ANISOCYTOSIS 3+; NUCLEATED RED BLOOD CELLS 10 /100WBC (0-0); PLATELET ESTIMATE DECREASED; TOTAL CELLS COUNTED 100
[2020-05-08 09:15] LABS: HYPOCHROMASIA 2+; POLYCHROMASIA FEW; SCHISTOCYTES FEW
[2020-05-08 09:16] LABS: STOMATOCYTES 1+
[2020-05-08] MEDS: CefTRIAXone/D5W-Rocephin 1gm 50 ML IV SCH (10:52)
[2020-05-08 11:00] VITALS: BP 120/87
[2020-05-08 12:23] LABS: % IRON SATURATION 25 % (11-46); IRON 39 UG/DL (49-151); TOTAL IRON BINDING CAPACITY 155 UG/DL (259-388)
[2020-05-08 14:00] LABS: HIV ANTIBODY 1&2 RAPID NON-REACTIVE (Neg)
[2020-05-08 15:00] VITALS: BP 123/68
--- NOTE | 2020-05-08 16:30 | NUR ---
notified. PAGER ID: [phone] MESSAGE: Re: Chastity Dunne. [id number]. Is it possible to order a diet for her? thanks. harriett. [phone].
[2020-05-08 18:00] VITALS: BP 129/69
--- NOTE | 2020-05-08 18:20 | NUR ---
Problems reprioritized. Patient report given, questions answered & plan of care reviewed with LESLY Hall.
--- NOTE | 2020-05-08 18:47 | NUR ---
Patient in room PCU 3014. I have received report from Lakesha GRACE and had the opportunity to ask questions and assume patient care.
[2020-05-08] MEDS: thiamine 100mg tablet PO SCH (19:08)
[2020-05-08] MEDS: multivitamins, therapeutics tablet PO SCH (19:09)
[2020-05-08] MEDS: folic acid 1mg tablet PO SCH (19:09)
[2020-05-08 22:00] VITALS: BP 119/77
[2020-05-09 02:00] VITALS: BP 131/76
[2020-05-09] MEDS: pantoprazole 40MG/NS 100ML BAG 100 ML IV SCH ×5 (03:03→20:25)
--- NOTE | 2020-05-09 06:00 | NUR ---
Patient in room PCU 3014. I have received report from Isabel GRACE and had the opportunity to ask questions and assume patient care.
[2020-05-09 06:51] LABS: LYMPHOCYTES # (AUTO) 0.7 X10'3 (1.1-4.8); NEUTROPHILS # (AUTO) 2.6 X10'3 (1.8-7.7); WHITE BLOOD COUNT 3.9 X10'3 (4.5-11.0)
[2020-05-09 06:56] LABS: BASOPHILS % (AUTO) 1.3 % (0-1); HEMATOCRIT 23.7 % (35.0-45.0); LYMPHOCYTES % (AUTO) 19.1 % (21-51); MEAN CORPUSCULAR HEMOGLOBIN 31.1 PG (27.0-31.0); MEAN CORPUSCULAR VOLUME 91.5 FL (78-98); MEAN PLATELET VOLUME 7.9 FL (7.4-10.4); MONOCYTES # (AUTO) 0.4 X10'3 (0-0.9); MONOCYTES % (AUTO) 11.6 % (2-12); PLATELET COUNT 149 X10'3 (140-440); RED BLOOD COUNT 2.58 X10'6 (4.20-5.60); RED CELL DISTRIBUTION WIDTH 20.8 % (11.5-14.5)
[2020-05-09 07:00] VITALS: BP 108/64
[2020-05-09 07:26] LABS: ALANINE AMINOTRANSFERASE 82 U/L (12-78); ALBUMIN 2.4 G/DL (3.4-5.0); ALBUMIN/GLOBULIN RATIO 0.8 (1.1-1.5); ALKALINE PHOSPHATASE 143 IU/L (46-116); ANION GAP 11 (8-16); ASPARTATE AMINO TRANSFERASE 212 U/L (10-37); BILIRUBIN,TOTAL 1.2 MG/DL (0.1-1.0); BLOOD UREA NITROGEN 3 MG/DL (7-18); BUN/CREATININE RATIO 5.7 (6.6-38.0); CALCIUM 8.2 MG/DL (8.5-10.1); CHLORIDE 104 MMOL/L (99-107); CREATININE 0.53 MG/DL (0.40-0.90); GLUCOSE 104 MG/DL (70-104); MAGNESIUM 1.4 MG/DL (1.5-2.4); POTASSIUM 3.1 MMOL/L (3.5-5.1); SODIUM 139 MMOL/L (135-145); TOTAL CARBON DIOXIDE 23.7 MMOL/L (24-32); TOTAL PROTEIN 5.4 G/DL (6.4-8.2); eGFR > 90 ML/MIN
[2020-05-09 07:40] LABS: PHOSPHORUS 1.1 MG/DL (2.3-4.5)
--- NOTE | 2020-05-09 07:40 | NUR ---
Problems reprioritized. Patient report given, questions answered & plan of care reviewed with Roxana GRACE.
--- NOTE | 2020-05-09 07:49 | NUR ---
Paged Dr. Mai regarding phos levels. PAGER ID: [phone] MESSAGE: [phone] Socorro Dunne. Phos 1.1. Can I get a phos replacement order? Thank you. [facility] Crystal [phone]
--- NOTE | 2020-05-09 07:54 | NUR ---
CRITICAL LAB VALUE TAKEN REPORTED TO PRIMARY RN.
[2020-05-09] MEDS: K and/or MAG REPLACEMENT MC SCH ×2 (08:00→20:26)
[2020-05-09] MEDS: CefTRIAXone/D5W-Rocephin 1gm 50 ML IV SCH (08:54)
[2020-05-09] MEDS: potassium Cl 20 mEq SR tablet PO PRN (08:55)
[2020-05-09] MEDS: thiamine 100mg tablet PO SCH (08:55)
[2020-05-09] MEDS: magnesium Cl slow-release 64mg tablet PO PRN ×2 (08:55→20:26)
[2020-05-09] MEDS: normal saline 1000ml 1,000 ML IV SCH ×2 (08:55→20:27)
[2020-05-09] MEDS: folic acid 1mg tablet PO SCH (08:56)
[2020-05-09] MEDS: multivitamins, therapeutics tablet PO SCH (08:56)
[2020-05-09] MEDS ORDERED: potassium phosphate inj 30 MMOL in normal saline 500ml IV soln 500 ML IV ONE (09:00)
[2020-05-09 09:45] LABS: NUCLEATED RED BLOOD CELLS 2 /100WBC (0-0); TOTAL CELLS COUNTED 100
[2020-05-09 09:46] LABS: ANISOCYTOSIS 3+; PLATELET ESTIMATE NORMAL; POLYCHROMASIA 1+; TEAR DROP CELLS FEW
[2020-05-09 09:47] LABS: SMUDGE CELLS 1+; STOMATOCYTES FEW
[2020-05-09 11:00] VITALS: BP 124/76
[2020-05-09 18:00] VITALS: BP 113/74
--- NOTE | 2020-05-09 18:30 | NUR ---
Patient in room PCU 3025. I have received report from Roxana GRACE and had the opportunity to ask questions and assume patient care.
--- NOTE | 2020-05-09 18:35 | NUR ---
Problems reprioritized. Patient report given, questions answered & plan of care reviewed with Blu RN. Stable at transfer of care.
[2020-05-09] MEDS: LORazepam 2 mg/ml vial IV PRN (20:42)
[2020-05-09 22:00] VITALS: BP 103/60
[2020-05-10] MEDS: pantoprazole 40MG/NS 100ML BAG 100 ML IV SCH ×5 (01:31→20:10)
[2020-05-10 02:00] VITALS: BP 119/75
[2020-05-10] MEDS: normal saline 1000ml 1,000 ML IV SCH ×3 (03:45→22:51)
[2020-05-10] MEDS ORDERED: LORazepam 1 MG tablet PO PRN (05:55)
[2020-05-10] MEDS ORDERED: LORazepam 2 mg/ml vial IV PRN (05:55)
[2020-05-10 06:08] LABS: HEMOGLOBIN 8.1 g/dl (12.0-16.0); LYMPHOCYTES # (AUTO) 0.7 X10'3 (1.1-4.8); MONOCYTES # (AUTO) 0.4 X10'3 (0-0.9); NEUTROPHILS # (AUTO) 2.2 X10'3 (1.8-7.7); PLATELET COUNT 169 X10'3 (140-440); RED CELL DISTRIBUTION WIDTH 21.3 % (11.5-14.5); WHITE BLOOD COUNT 3.4 X10'3 (4.5-11.0)
[2020-05-10 06:11] LABS: BASOPHILS % (AUTO) 1.1 % (0-1); EOSINOPHILS % (AUTO) 0.7 % (0-6); HEMATOCRIT 23.8 % (35.0-45.0); MEAN CORPUSCULAR HEMOGLOBIN 31.3 PG (27.0-31.0); MEAN CORPUSCULAR HGB CONC 33.9 g/dL (33.0-36.5); MEAN CORPUSCULAR VOLUME 92.5 FL (78-98); MEAN PLATELET VOLUME 7.8 FL (7.4-10.4); MONOCYTES % (AUTO) 12.2 % (2-12); RED BLOOD COUNT 2.58 X10'6 (4.20-5.60)
--- NOTE | 2020-05-10 06:12 | NUR ---
Problems reprioritized. Patient report given, questions answered & plan of care reviewed with Roxana GRACE.
[2020-05-10 06:38] LABS: ALANINE AMINOTRANSFERASE 158 U/L (12-78); ALBUMIN 2.3 G/DL (3.4-5.0); ALBUMIN/GLOBULIN RATIO 0.8 (1.1-1.5); ALKALINE PHOSPHATASE 167 IU/L (46-116); ANION GAP 12 (8-16); ASPARTATE AMINO TRANSFERASE 519 U/L (10-37); BILIRUBIN,TOTAL 1.1 MG/DL (0.1-1.0); BLOOD UREA NITROGEN 2 MG/DL (7-18); BUN/CREATININE RATIO 4.3 (6.6-38.0); CALCIUM 7.7 MG/DL (8.5-10.1); CHLORIDE 107 MMOL/L (99-107); CREATININE 0.46 MG/DL (0.40-0.90); GLUCOSE 93 MG/DL (70-104); MAGNESIUM 1.3 MG/DL (1.5-2.4); PHOSPHORUS 1.9 MG/DL (2.3-4.5); POTASSIUM 3.2 MMOL/L (3.5-5.1); SODIUM 142 MMOL/L (135-145); TOTAL CARBON DIOXIDE 23.4 MMOL/L (24-32); TOTAL PROTEIN 5.3 G/DL (6.4-8.2); eGFR > 90 ML/MIN
--- NOTE | 2020-05-10 06:40 | NUR ---
Patient in room PCU 3025. I have received report from Blu GRACE and had the opportunity to ask questions and assume patient care.
[2020-05-10 07:00] VITALS: BP 120/64
[2020-05-10 07:16] LABS: PLATELET ESTIMATE NORMAL
[2020-05-10 07:17] LABS: ANISOCYTOSIS 2+; HYPOCHROMASIA 1+; POLYCHROMASIA 1+
[2020-05-10 07:18] LABS: STOMATOCYTES 1+
[2020-05-10] MEDS: K and/or MAG REPLACEMENT MC SCH ×2 (08:00→20:11)
[2020-05-10] MEDS: magnesium Cl slow-release 64mg tablet PO PRN ×2 (08:44→20:11)
[2020-05-10] MEDS: CefTRIAXone/D5W-Rocephin 1gm 50 ML IV SCH (08:44)
[2020-05-10] MEDS: folic acid 1mg tablet PO SCH (08:45)
[2020-05-10] MEDS: thiamine 100mg tablet PO SCH (08:45)
[2020-05-10] MEDS: multivitamins, therapeutics tablet PO SCH (08:45)
[2020-05-10] MEDS: potassium Cl 20 mEq SR tablet PO PRN ×2 (08:45→12:32)
--- NOTE | 2020-05-10 09:38 | NUR ---
Paged Dr. Mai regarding phos level. PAGER ID: [phone] MESSAGE: [phone] Socorro Dunne. Need phos replacement order. Thank you [facility] Crystal [phone]
[2020-05-10] MEDS ORDERED: potassium phosphate inj 30 MMOL in normal saline 500ml IV soln 500 ML IV ONE (10:45)
[2020-05-10 11:00] VITALS: BP 128/81
[2020-05-10] MEDS: lactose-reduced food (Ensure Enlive) - 237ml bottle PO SCH ×2 (13:00→18:00)
[2020-05-10 15:00] VITALS: BP 117/76
[2020-05-10 18:00] VITALS: BP 109/74
--- NOTE | 2020-05-10 18:17 | NUR ---
Problems reprioritized. Patient report given, questions answered & plan of care reviewed with Blu RN. Patient stable at transfer of care.
--- NOTE | 2020-05-10 18:19 | NUR ---
Patient in room PCU 3025. I have received report from Roxana GRACE and had the opportunity to ask questions and assume patient care.
[2020-05-10] MEDS ORDERED: potassium Cl 20 mEq SR tablet PO PRN (19:35)
[2020-05-10 22:00] VITALS: BP 111/75
[2020-05-10] MEDS ORDERED: potassium Cl 20mEq in D5-NS 1,000 ML IV SCH (23:25)
[2020-05-11] VITALS (7 sets, daily range): BP systolic 119–190; BP diastolic 77–93
--- NOTE | 2020-05-11 06:00 | NUR ---
Patient in room PCU 3014. I have received report from LESLY Benítez and had the opportunity to ask questions and assume patient care.
--- NOTE | 2020-05-11 06:20 | NUR ---
Problems reprioritized. Patient report given, questions answered & plan of care reviewed with Jesus GRACE.
[2020-05-11 06:51] LABS: BASOPHILS % (AUTO) 0.7 % (0-1); EOSINOPHILS % (AUTO) 0.1 % (0-6); HEMATOCRIT 25.4 % (35.0-45.0); HEMOGLOBIN 8.4 g/dl (12.0-16.0); LYMPHOCYTES # (AUTO) 0.6 X10'3 (1.1-4.8); LYMPHOCYTES % (AUTO) 14.3 % (21-51); MEAN CORPUSCULAR HEMOGLOBIN 31.4 PG (27.0-31.0); MEAN CORPUSCULAR HGB CONC 33.2 g/dL (33.0-36.5); MEAN CORPUSCULAR VOLUME 94.4 FL (78-98); MONOCYTES # (AUTO) 0.7 X10'3 (0-0.9); MONOCYTES % (AUTO) 16.7 % (2-12); NEUTROPHILS # (AUTO) 2.9 X10'3 (1.8-7.7); NEUTROPHILS % (AUTO) 68.2 % (42-75); PLATELET COUNT 178 X10'3 (140-440); RED BLOOD COUNT 2.69 X10'6 (4.20-5.60); RED CELL DISTRIBUTION WIDTH 22.8 % (11.5-14.5); WHITE BLOOD COUNT 4.2 X10'3 (4.5-11.0)
[2020-05-11 06:54] LABS: ALANINE AMINOTRANSFERASE 176 U/L (12-78); ALBUMIN 2.4 G/DL (3.4-5.0); ALBUMIN/GLOBULIN RATIO 0.7 (1.1-1.5); ALKALINE PHOSPHATASE 171 IU/L (46-116); ANION GAP 13 (8-16); ASPARTATE AMINO TRANSFERASE 433 U/L (10-37); BILIRUBIN,TOTAL 1.1 MG/DL (0.1-1.0); BLOOD UREA NITROGEN 3 MG/DL (7-18); BUN/CREATININE RATIO 5.6 (6.6-38.0); CHLORIDE 108 MMOL/L (99-107); CREATININE 0.54 MG/DL (0.40-0.90); GLUCOSE 122 MG/DL (70-104); MAGNESIUM 1.3 MG/DL (1.5-2.4); PHOSPHORUS 2.2 MG/DL (2.3-4.5); POTASSIUM 3.4 MMOL/L (3.5-5.1); SODIUM 144 MMOL/L (135-145); TOTAL CARBON DIOXIDE 22.9 MMOL/L (24-32); TOTAL PROTEIN 5.7 G/DL (6.4-8.2); eGFR > 90 ML/MIN
[2020-05-11 07:31] LABS: ANISOCYTOSIS 3+; PLATELET ESTIMATE NORMAL; TOTAL CELLS COUNTED 100
[2020-05-11 07:32] LABS: MICROCYTOSIS 1+; POLYCHROMASIA FEW
[2020-05-11] MEDS: thiamine 100mg tablet PO SCH (07:53)
[2020-05-11] MEDS: folic acid 1mg tablet PO SCH (07:55)
[2020-05-11] MEDS: magnesium Cl slow-release 64mg tablet PO PRN (07:56)
[2020-05-11] MEDS: multivitamins, therapeutics tablet PO SCH (07:56)
[2020-05-11] MEDS: lactose-reduced food (Ensure Enlive) - 237ml bottle PO SCH ×2 (07:58→13:27)
[2020-05-11] MEDS ORDERED: pantoprazole 40mg Tablet.DR PO SCH (08:00)
[2020-05-11] MEDS: CefTRIAXone/D5W-Rocephin 1gm 50 ML IV SCH (08:31)
[2020-05-11] MEDS: K and/or MAG REPLACEMENT MC SCH (08:32)
[2020-05-11 10:53] LABS: HBSAG SCREEN Negative (Negative); HEP A AB, IGM Negative (Negative); HEPATITIS C ANTIBODY <0.1 s/co ratio (0.0-0.9)
--- NOTE | 2020-05-11 12:06 | NUR ---
Problems reprioritized. Patient report given, questions answered & plan of care reviewed with LESLY Lee.
--- NOTE | 2020-05-11 12:07 | NUR ---
Student documentation: I have reviewed and agree with all interventions, assessments performed and documented by Jessica, nursing informatics analyst.
--- NOTE | 2020-05-11 12:07 | NUR ---
Student Medication Administration: For this medication-pass time frame, all medication were reviewed, dispensed, administered and documented per hospital policy by ethan Lopez.
--- NOTE | 2020-05-11 12:45 | NUR ---
Chastity Galvan, 8914C, patient ambulated well with Pt ; however experienced dizziness. BP showed syst 190s/ 80s. On rechecking sys 150s/80s. Pt is resting quietly in bed right now. Also I do not see a Discharge order. - Jesus GRACE ext [phone]
[2020-05-11] MEDS ORDERED: MULT-25 PO (12:56)
[2020-05-11] MEDS ORDERED: THIA50TA10 PO (12:56)
[2020-05-11] MEDS ORDERED: PANT40TA54 PO (12:56)
[2020-05-11] MEDS ORDERED: MAGN400C PO (12:56)
[2020-05-11] MEDS ORDERED: FOLI0.4T6 PO (12:56)
[2020-05-11] MEDS ORDERED: POTA20TA19 PO (12:56)
[2020-05-11] MEDS ORDERED: LORA-269 PO (12:56)
[2020-05-11] MEDS ORDERED: NEUPHOSK PO (12:56)
[2020-05-11] MEDS ORDERED: CEFD300C3 PO (12:56)
[2020-05-11] MEDS ORDERED: CHLO25CA10 PO (13:04)
[2020-05-12] MEDS ORDERED: LORazepam 1 MG tablet PO PRN (05:55)
[2020-05-12] MEDS ORDERED: LORazepam 2 mg/ml vial IV PRN (05:55)
--- NOTE | 2020-05-12 10:52 | NUR ---
CASE MANAGEMENT DISCHARGE FOLLOW UP: After chart review for t/c interview with pt, determined that pt does not have contact information in chart. Unable to follow up with pt.
== END 2020-05-11 16:14 | disposition home or self-care (01) | DRG 241 ==
LOC: ER 12:56 → ED HOLD 15:42 → EDBEDREQTM 21:16 → PCU 3S 22:24
PROVIDERS: ADMIT Family Medicine; ATTEND Family Medicine
PROC: 30233N1 Transfusion of Nonautologous Red Blood Cells into Peripheral Vein, Percutaneous Approach (ICD-10-PCS; principal; 2020-05-07)
PROC: 0DB58ZX Excision of Esophagus, Via Natural or Artificial Opening Endoscopic, Diagnostic (ICD-10-PCS; 2020-05-07)
PROC: 0DB68ZX Excision of Stomach, Via Natural or Artificial Opening Endoscopic, Diagnostic (ICD-10-PCS; 2020-05-07)
DX: K29.01 Acute gastritis with bleeding (principal); G92 Toxic encephalopathy; D61.818 Other pancytopenia; D69.59 Other secondary thrombocytopenia; E87.6 Hypokalemia; F10.239 Alcohol dependence with withdrawal, unspecified; F17.200 Nicotine dependence, unspecified, uncomplicated; F12.90 Cannabis use, unspecified, uncomplicated; E03.9 Hypothyroidism, unspecified; K21.00 Gastro-esophageal reflux disease with esophagitis, without bleeding; K70.10 Alcoholic hepatitis without ascites; Z60.2 Problems related to living alone; K44.9 Diaphragmatic hernia without obstruction or gangrene; F15.20 Other stimulant dependence, uncomplicated; E83.39 Other disorders of phosphorus metabolism; N39.0 Urinary tract infection, site not specified; K70.9 Alcoholic liver disease, unspecified; Z59.0 Homelessness; Z87.440 Personal history of urinary (tract) infections
CPT/HCPCS: 36415; 36430; 43239; 71045; 76700; 76937; 80053; 80061; 80305; 80320; 81001; 82272; 82728; 82948; 83036; 83540; 83550; 83735; 84100; 84443; 85007; 85008; 85025; 85610; 85730; 86703; 86705; 86706; 86709; 86803; 86885; 86900; 86901; 86920; 87081; 87088; 87340; 93005; 96365; 97116; 97161; 97530; 99152; 99285; A4620; C9113; G0378; J0696; J1630; J2060; J2250; J2354; J2405; J2560; J3010; J3411; J3475; J3480; J7030; J7040; P9016; Q0163

== ENCOUNTER 2020-06-29 17:36 | Inpatient (IN) | payer MEDICAID ==
[~2020-06-29] VITALS: Ht 167.6 cm; Wt 68.2 kg
[~2020-06-29 17:36] MED LIST changes: -GABA-530 PO; +MAGN400C PO; +MULT-25 PO; +NEUPHOSK PO; -NITR100C6 PO; -NO HOME MEDS; -ONDA4TAB12 PO; +PANT40TA54 PO; +THIA50TA10 PO
--- NOTE | 2020-06-29 19:11 | NUR ---
Pt is observed to be resting and hiccupping in bed.
[2020-06-29] MEDS ORDERED: thiamine inj. 100 MG, magnesium sulf injection 2 GM, MVI, adult No.4 with vit. K 10 ML ... IV STA ×4 (19:31)
[2020-06-29] MEDS ORDERED: LORazepam 1 MG tablet PO ONE (19:35)
[2020-06-29] MEDS ORDERED: folic acid 1mg/0.2ml inj IV ONE (19:40)
[2020-06-29] MEDS ORDERED: thiamine 100mg/ml 2ml inj. IV ONE (19:40)
[2020-06-29] MEDS ORDERED: MULTIVIT-MIN/FERROUS GLUCONATE 9 MG/15 ML LIQUID PO ONE (19:40)
[2020-06-29 20:00] LABS: BASOPHILS % (AUTO) 0.7 % (0-1); EOSINOPHILS % (AUTO) 0.2 % (0-6); HEMATOCRIT 31.8 % (35.0-45.0); HEMOGLOBIN 10.6 g/dl (12.0-16.0); LYMPHOCYTES # (AUTO) 1.3 X10'3 (1.1-4.8); LYMPHOCYTES % (AUTO) 19.3 % (21-51); MEAN CORPUSCULAR HEMOGLOBIN 31.4 PG (27.0-31.0); MEAN CORPUSCULAR HGB CONC 33.4 g/dL (33.0-36.5); MEAN CORPUSCULAR VOLUME 94.1 FL (78-98); MEAN PLATELET VOLUME 7.7 FL (7.4-10.4); MONOCYTES # (AUTO) 0.6 X10'3 (0-0.9); MONOCYTES % (AUTO) 8.6 % (2-12); NEUTROPHILS # (AUTO) 4.7 X10'3 (1.8-7.7); NEUTROPHILS % (AUTO) 71.2 % (42-75); PLATELET COUNT 117 X10'3 (140-440); RED BLOOD COUNT 3.38 X10'6 (4.20-5.60); RED CELL DISTRIBUTION WIDTH 19.1 % (11.5-14.5); WHITE BLOOD COUNT 6.5 X10'3 (4.5-11.0)
[2020-06-29 20:03] LABS: ALANINE AMINOTRANSFERASE 57 U/L (12-78); ALBUMIN 3.6 G/DL (3.4-5.0); ALBUMIN/GLOBULIN RATIO 0.9 (1.1-1.5); ALKALINE PHOSPHATASE 141 IU/L (46-116); ANION GAP 19 (8-16); ASPARTATE AMINO TRANSFERASE 137 U/L (10-37); BILIRUBIN,TOTAL 0.7 MG/DL (0.1-1.0); BLOOD UREA NITROGEN 13 MG/DL (7-18); BUN/CREATININE RATIO 14.4 (6.6-38.0); CALCIUM 8.3 MG/DL (8.5-10.1); CHLORIDE 97 MMOL/L (99-107); GLUCOSE 85 MG/DL (70-104); POTASSIUM 3.2 MMOL/L (3.5-5.1); SODIUM 140 MMOL/L (135-145); TOTAL CARBON DIOXIDE 23.9 MMOL/L (24-32); TOTAL PROTEIN 7.7 G/DL (6.4-8.2); eGFR 66 ML/MIN
[2020-06-29] MEDS ORDERED: ringers solution, lacted 1,000 ML IV ONE ×2 (20:25→21:40)
[2020-06-29 21:17] LABS: ANISOCYTOSIS 2+; MICROCYTOSIS FEW; PLATELET ESTIMATE DECREASED
[2020-06-29 21:18] LABS: TEAR DROP CELLS FEW
[2020-06-29 21:58] LABS: URINE HCG NEGATIVE (NEG)
[2020-06-29 22:02] LABS: CLARITY,URINE CLOUDY (Clear); COLOR,URINE YELLOW (Yellow); GLUCOSE, URINE NEGATIVE (Neg); KETONES,URINE 40 mg/dl (Neg); LEUKOCYTE ESTERASE ,URINE MODERATE (Neg); NITRITES, URINE POSITIVE (Neg); OCCULT BLOOD,URINE TRACE-INTACT (Neg); PROTEIN,URINE 100 mg/dl (Neg)
[2020-06-29 22:11] LABS: UA COLLECTION TYPE CLN CATCH MIDSTREAM
[2020-06-29 22:13] LABS: BACTERIA,URINE 4+ /HPF (Neg); RBC,URINE 0-2 /HPF (0-2); SQUAMOUS EPITHELIAL CELL,UR FEW /LPF (FEW); WBC,URINE 50-100 /HPF (0-4)
[2020-06-29 22:14] LABS: HYALINE CASTS 0-3 /LPF (NEGATIVE); MUCUS STRANDS MODERATE /LPF (Neg); WBC CLUMPS,URINE MODERATE /HPF (NEGATIVE)
[2020-06-29] MEDS ORDERED: CefTRIAXone 2gm/D5W 50ml BAG 50 ML IV ONE (22:25)
--- NOTE | 2020-06-29 22:53 | NUR ---
Hospitalist at bedside.
[2020-06-29] MEDS ORDERED: LORazepam 2 mg/ml vial IV PRN (23:05)
[2020-06-29] MEDS ORDERED: potassium Cl 40MEQ/1/2NS 520ml 520 ML IV PRN ×2 (23:05)
[2020-06-29] MEDS ORDERED: magnesium 2GM in 50ml NS 50 ML IV PRN (23:05)
[2020-06-29] MEDS ORDERED: magnesium 4gm in 100ml NS 100 ML IV PRN (23:05)
[2020-06-29] MEDS ORDERED: acetaminophen 325mg tablet PO PRN ×2 (23:05)
[2020-06-29] MEDS ORDERED: normal saline 1000ml 1,000 ML IV ONE (23:05)
[2020-06-29] MEDS: normal saline 1000ml 1,000 ML IV SCH (23:24)
[2020-06-30 02:47] LABS: BASOPHILS # (AUTO) 0.1 X10'3 (0-0.2); BASOPHILS % (AUTO) 0.7 % (0-1); EOSINOPHILS % (AUTO) 0.3 % (0-6); HEMATOCRIT 28.1 % (35.0-45.0); HEMOGLOBIN 9.4 g/dl (12.0-16.0); LYMPHOCYTES # (AUTO) 0.9 X10'3 (1.1-4.8); LYMPHOCYTES % (AUTO) 12.7 % (21-51); MEAN CORPUSCULAR HEMOGLOBIN 31.3 PG (27.0-31.0); MEAN CORPUSCULAR HGB CONC 33.4 g/dL (33.0-36.5); MEAN CORPUSCULAR VOLUME 93.6 FL (78-98); MEAN PLATELET VOLUME 7.6 FL (7.4-10.4); MONOCYTES # (AUTO) 0.4 X10'3 (0-0.9); MONOCYTES % (AUTO) 5.8 % (2-12); NEUTROPHILS # (AUTO) 5.7 X10'3 (1.8-7.7); NEUTROPHILS % (AUTO) 80.5 % (42-75); PLATELET COUNT 80 X10'3 (140-440); RED CELL DISTRIBUTION WIDTH 18.9 % (11.5-14.5); WHITE BLOOD COUNT 7.1 X10'3 (4.5-11.0)
[2020-06-30 02:57] LABS: ALANINE AMINOTRANSFERASE 44 U/L (12-78); ALBUMIN/GLOBULIN RATIO 0.9 (1.1-1.5); ALKALINE PHOSPHATASE 120 IU/L (46-116); ANION GAP 18 (8-16); ASPARTATE AMINO TRANSFERASE 113 U/L (10-37); BILIRUBIN,TOTAL 0.7 MG/DL (0.1-1.0); BLOOD UREA NITROGEN 9 MG/DL (7-18); BUN/CREATININE RATIO 10.5 (6.6-38.0); CALCIUM 7.5 MG/DL (8.5-10.1); CHLORIDE 100 MMOL/L (99-107); CREATININE 0.86 MG/DL (0.40-0.90); GLUCOSE 73 MG/DL (70-104); LIPASE 326 U/L (73-393); MAGNESIUM 1.5 MG/DL (1.5-2.4); PHOSPHORUS 2.7 MG/DL (2.3-4.5); POTASSIUM 3.2 MMOL/L (3.5-5.1); SODIUM 141 MMOL/L (135-145); TOTAL CARBON DIOXIDE 23.1 MMOL/L (24-32); TOTAL PROTEIN 6.5 G/DL (6.4-8.2); eGFR 70 ML/MIN
[2020-06-30 03:18] LABS: ANISOCYTOSIS 2+; PLATELET ESTIMATE DECREASED
[2020-06-30] MEDS: potassium Cl 20 mEq SR tablet PO PRN ×3 (03:32→15:13)
[2020-06-30] MEDS: LORazepam 1 MG tablet PO PRN ×4 (03:36→22:40)
--- NOTE | 2020-06-30 06:38 | NUR ---
Patient in room ED 3. I have received report from LESLY OBRIEN and had the opportunity to ask questions and assume patient care. Awaiting patient arrival to room 4010A.
[2020-06-30 07:35] VITALS: BP 133/75
--- NOTE | 2020-06-30 07:35 | NUR ---
Received patient to room 4010a via [facility] accompanied by LESLY Alfred. Patient is alert and oriented x3. Oriented to room and call light. Seizure precautions in place. Bed is low and locked. SRx2 up, call light in reach. x3 belongings bags on side table.
[2020-06-30] MEDS: heparin, porcine 5000 units/ml vial SQ SCH ×2 (08:00→20:00)
[2020-06-30] MEDS: K and/or MAG REPLACEMENT MC SCH ×2 (08:00→20:00)
[2020-06-30] MEDS ORDERED: folic acid inj. 2 MG, thiamine inj. 100 MG, MVI, adult No.4 with vit. K 10 ML in dextro... IV SCH ×4 (08:00)
[2020-06-30] MEDS: docusate sod 100mg capsule PO SCH ×2 (08:23→20:37)
[2020-06-30] MEDS: normal saline 1000ml 1,000 ML IV SCH ×2 (08:23→18:41)
[2020-06-30] MEDS: nicotine 14mg patch - 24hr TD SCH (08:23)
[2020-06-30] MEDS: ondansetron/PF 4mg/2ml inj IV PRN (08:33)
--- NOTE | 2020-06-30 10:42 | NUR ---
PAGER ID: [phone] MESSAGE: [id number]- Socorro Dunne- Positive blood cultures. Aerobic Iv draw positive in 12.92 hours gram + cocci pairs and chains. - Hilary [phone]
[2020-06-30 11:00] VITALS: BP 133/80
[2020-06-30] MEDS ORDERED: NO HOME MEDS (11:11)
[2020-06-30 14:56] VITALS: BP 134/74
--- NOTE | 2020-06-30 15:35 | NUR ---
patient down to CT.
--- NOTE | 2020-06-30 15:52 | NUR ---
patient return to room 4010a
--- NOTE | 2020-06-30 17:02 | NUR ---
PAGER ID: [phone] MESSAGE: [id number]-Chastity Dunne- states she is having auditory and visual hallucinations. Received Ativan 1mg po 2 hours ago. -Thank you, Hilary [phone]
[2020-06-30 18:00] VITALS: BP 132/69
--- NOTE | 2020-06-30 18:21 | NUR ---
Problems reprioritized. Patient report given, questions answered & plan of care reviewed with LESLY Mckenna.
[2020-06-30] MEDS: lactobacillus rhamnosus 10,000 MMU CELLS/CAPSULE PO SCH (20:37)
[2020-06-30 22:00] VITALS: BP 121/78
[2020-06-30] MEDS: CefTRIAXone 2gm/D5W 50ml BAG 50 ML IV SCH (22:25)
[2020-06-30] MEDS: folic acid 1mg/0.2ml inj IV SCH (23:37)
[2020-06-30] MEDS: thiamine inj. 100 MG in normal saline 100ml IV soln 100 ML IV SCH (23:53)
[2020-07-01] MEDS: LORazepam 1 MG tablet PO PRN ×2 (05:10→19:38)
[2020-07-01] MEDS: normal saline 1000ml 1,000 ML IV SCH ×2 (05:13→15:06)
[2020-07-01 07:00] VITALS: BP 141/87
[2020-07-01 07:01] LABS: BASOPHILS % (AUTO) 0.6 % (0-1); EOSINOPHILS # (AUTO) 0.2 X10'3 (0-0.9); EOSINOPHILS % (AUTO) 3.1 % (0-6); HEMATOCRIT 29.8 % (35.0-45.0); HEMOGLOBIN 9.8 g/dl (12.0-16.0); LYMPHOCYTES # (AUTO) 0.3 X10'3 (1.1-4.8); LYMPHOCYTES % (AUTO) 5.3 % (21-51); MEAN CORPUSCULAR HGB CONC 32.9 g/dL (33.0-36.5); MEAN PLATELET VOLUME 8.2 FL (7.4-10.4); MONOCYTES # (AUTO) 0.3 X10'3 (0-0.9); MONOCYTES % (AUTO) 5.8 % (2-12); NEUTROPHILS # (AUTO) 4.3 X10'3 (1.8-7.7); NEUTROPHILS % (AUTO) 85.2 % (42-75); RED BLOOD COUNT 3.17 X10'6 (4.20-5.60); RED CELL DISTRIBUTION WIDTH 18.6 % (11.5-14.5); WHITE BLOOD COUNT 5.1 X10'3 (4.5-11.0)
[2020-07-01 07:15] LABS: ALANINE AMINOTRANSFERASE 63 U/L (12-78); ALBUMIN 2.9 G/DL (3.4-5.0); ALBUMIN/GLOBULIN RATIO 0.8 (1.1-1.5); ALKALINE PHOSPHATASE 135 IU/L (46-116); ANION GAP 16 (8-16); ASPARTATE AMINO TRANSFERASE 232 U/L (10-37); BILIRUBIN,TOTAL 0.7 MG/DL (0.1-1.0); BLOOD UREA NITROGEN 5 MG/DL (7-18); BUN/CREATININE RATIO 6.2 (6.6-38.0); CALCIUM 8.1 MG/DL (8.5-10.1); CHLORIDE 96 MMOL/L (99-107); CREATININE 0.81 MG/DL (0.40-0.90); GLUCOSE 74 MG/DL (70-104); LIPASE 248 U/L (73-393); MAGNESIUM 1.3 MG/DL (1.5-2.4); PHOSPHORUS 2.1 MG/DL (2.3-4.5); PLATELET COUNT 50 X10'3 (140-440); SODIUM 136 MMOL/L (135-145); TOTAL CARBON DIOXIDE 24.3 MMOL/L (24-32); TOTAL PROTEIN 6.7 G/DL (6.4-8.2); eGFR 75 ML/MIN
--- NOTE | 2020-07-01 07:27 | NUR ---
Patient in room ORTHO 4010. I have received report from Abbie GRACE and had the opportunity to ask questions and assume patient care.
--- NOTE | 2020-07-01 07:35 | NUR ---
PAGER ID: [phone] MESSAGE: Flor [phone] Re: Uzair 4010A Critical platelet 50 was 80 yesterday
[2020-07-01 07:38] LABS: POTASSIUM 2.9 MMOL/L (3.5-5.1)
--- NOTE | 2020-07-01 07:39 | NUR ---
PAGER ID: [phone] MESSAGE: Flor [phone] Re: Uzair 4010A K+2.9 Critical will replace per protocol
[2020-07-01] MEDS: K and/or MAG REPLACEMENT MC SCH ×2 (08:00→20:00)
[2020-07-01 08:03] LABS: PLATELET ESTIMATE DECREASED
[2020-07-01 08:05] LABS: ANISOCYTOSIS 2+; LARGE PLATELETS FEW
[2020-07-01] MEDS: docusate sod 100mg capsule PO SCH ×2 (08:26→19:37)
[2020-07-01] MEDS: nicotine 14mg patch - 24hr TD SCH (08:26)
[2020-07-01] MEDS: lactobacillus rhamnosus 10,000 MMU CELLS/CAPSULE PO SCH ×2 (08:26→19:37)
[2020-07-01] MEDS: magnesium Cl slow-release 64mg tablet PO PRN ×2 (08:27→19:38)
[2020-07-01] MEDS: potassium Cl 20 mEq SR tablet PO PRN ×3 (08:27→19:48)
[2020-07-01] MEDS: naltrexone 50mg tablet PO SCH (08:28)
[2020-07-01 10:00] VITALS: BP 137/89
[2020-07-01] MEDS: ondansetron/PF 4mg/2ml inj IV PRN ×2 (11:09→17:52)
[2020-07-01] MEDS ORDERED: potassium phosphate inj 15 MMOL in normal saline 250ml IV soln 250 ML IV ONE (11:25)
--- NOTE | 2020-07-01 12:26 | NUR ---
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 PO 0-25% initial meals w/ vomiting today per RN likely impacting PO. Pt has no scaled wt this admit though current reported wt 2kg high than bed scale wt 66kg prior April admit this year. No edema, wounds, or significant weakness noted in EMR. RN reports pt has no issues gripping utensils or need for adaptive wear. Pt does not meet minimum malnutrition criteria at this time. Will monitor for PO trends and additional malnutrition criteria this admit. Addendum: 07/01/20 at [address] Amended: Links added.
--- NOTE | 2020-07-01 14:27 | NUR ---
PAGER ID: [phone] MESSAGE: Chiara-Surg [phone] Re: Uzair 4010A have a question re: Naltrexone and Ativan pharmacist said to speak with you
--- NOTE | 2020-07-01 15:13 | NUR ---
PAGER ID: [phone] MESSAGE: Bebeto Hubbard [phone] Re: Uzair please call re: medication questions
[2020-07-01 18:00] VITALS: BP 121/72
--- NOTE | 2020-07-01 18:30 | NUR ---
Problems reprioritized. Patient report given, questions answered & plan of care reviewed with Heather GRACE.
[2020-07-01] MEDS: thiamine inj. 100 MG in normal saline 100ml IV soln 100 ML IV SCH (19:37)
[2020-07-01] MEDS: folic acid 1mg/0.2ml inj IV SCH (20:02)
[2020-07-01 22:00] VITALS: BP 160/103
[2020-07-01] MEDS: CefTRIAXone 2gm/D5W 50ml BAG 50 ML IV SCH (23:39)
[2020-07-02] MEDS: normal saline 1000ml 1,000 ML IV SCH ×3 (01:05→23:58)
[2020-07-02] MEDS: LORazepam 1 MG tablet PO PRN ×3 (02:35→13:31)
--- NOTE | 2020-07-02 06:49 | NUR ---
Patient in room ORTHO 4010. I have received report from Heather GRACE and had the opportunity to ask questions and assume patient care. Pt alert, eager to walk with therapy. encouraged appetite and BM today. BLL, CL within reach, safety education completed. no s/sx acute distress
[2020-07-02 07:00] VITALS: BP 136/94
[2020-07-02 07:12] LABS: BASOPHILS % (AUTO) 0.7 % (0-1); EOSINOPHILS # (AUTO) 0.2 X10'3 (0-0.9); EOSINOPHILS % (AUTO) 3.6 % (0-6); HEMATOCRIT 30.2 % (35.0-45.0); LYMPHOCYTES # (AUTO) 0.4 X10'3 (1.1-4.8); LYMPHOCYTES % (AUTO) 8.7 % (21-51); MEAN CORPUSCULAR HEMOGLOBIN 31.1 PG (27.0-31.0); MEAN CORPUSCULAR HGB CONC 33.1 g/dL (33.0-36.5); MEAN PLATELET VOLUME 8.4 FL (7.4-10.4); MONOCYTES # (AUTO) 0.4 X10'3 (0-0.9); MONOCYTES % (AUTO) 7.3 % (2-12); NEUTROPHILS # (AUTO) 3.9 X10'3 (1.8-7.7); NEUTROPHILS % (AUTO) 79.7 % (42-75); PLATELET COUNT 54 X10'3 (140-440); RED BLOOD COUNT 3.21 X10'6 (4.20-5.60); RED CELL DISTRIBUTION WIDTH 18.5 % (11.5-14.5); WHITE BLOOD COUNT 4.9 X10'3 (4.5-11.0)
[2020-07-02 07:26] LABS: ALANINE AMINOTRANSFERASE 72 U/L (12-78); ALBUMIN 3.1 G/DL (3.4-5.0); ALBUMIN/GLOBULIN RATIO 0.8 (1.1-1.5); ALKALINE PHOSPHATASE 148 IU/L (46-116); ANION GAP 14 (8-16); ASPARTATE AMINO TRANSFERASE 176 U/L (10-37); BILIRUBIN,TOTAL 0.6 MG/DL (0.1-1.0); BLOOD UREA NITROGEN 3 MG/DL (7-18); BUN/CREATININE RATIO 5.1 (6.6-38.0); CALCIUM 8.8 MG/DL (8.5-10.1); CHLORIDE 97 MMOL/L (99-107); CREATININE 0.59 MG/DL (0.40-0.90); GLUCOSE 89 MG/DL (70-104); LIPASE 222 U/L (73-393); MAGNESIUM 1.3 MG/DL (1.5-2.4); SODIUM 136 MMOL/L (135-145); TOTAL CARBON DIOXIDE 25.2 MMOL/L (24-32); TOTAL PROTEIN 7.1 G/DL (6.4-8.2); eGFR > 90 ML/MIN
[2020-07-02] MEDS: K and/or MAG REPLACEMENT MC SCH ×2 (08:05→20:00)
[2020-07-02] MEDS: nicotine 14mg patch - 24hr TD SCH (08:05)
[2020-07-02] MEDS: docusate sod 100mg capsule PO SCH ×2 (08:06→20:00)
[2020-07-02] MEDS: lactobacillus rhamnosus 10,000 MMU CELLS/CAPSULE PO SCH ×2 (08:06→20:56)
[2020-07-02] MEDS: naltrexone 50mg tablet PO SCH (08:06)
[2020-07-02] MEDS: magnesium Cl slow-release 64mg tablet PO PRN (10:05)
[2020-07-02 11:00] VITALS: BP 126/84
[2020-07-02 11:08] LABS: PARTIAL THROMBOPLASTIN TIME 27 SECONDS (22-32)
--- NOTE | 2020-07-02 11:42 | NUR ---
Dr Tam to unit Dr. Tam to ortho neuro. new orders for Phos level x5 days and bowel care.
[2020-07-02 11:58] LABS: PHOSPHORUS 2.1 MG/DL (2.3-4.5)
--- NOTE | 2020-07-02 16:35 | NUR ---
Paged Dr. Tam RE: Chastity Dunne: RM [id number]: Phos 2.1 do you want to replace? ThanksSwetha #[phone]
[2020-07-02 18:00] VITALS: BP 128/79
[2020-07-02] MEDS: LORazepam 2 mg/ml vial IV PRN ×3 (18:02→22:57)
--- NOTE | 2020-07-02 18:52 | NUR ---
Problems reprioritized. Patient report given, questions answered & plan of care reviewed with Aubrie GRACE.
--- NOTE | 2020-07-02 19:14 | NUR ---
Patient in room ORTHO 4010. I have received report from Swetha GRACE and had the opportunity to ask questions and assume patient care.
[2020-07-02] MEDS: folic acid 1mg/0.2ml inj IV SCH (21:05)
[2020-07-02] MEDS: thiamine inj. 100 MG in normal saline 100ml IV soln 100 ML IV SCH (21:05)
[2020-07-02] MEDS: temazepam 15mg capsule PO PRN (21:50)
[2020-07-02] MEDS ORDERED: haloperidol lactate 5mg/ml inj IM PRN (23:10)
[2020-07-02] MEDS ORDERED: haloperidol 5mg tablet PO PRN (23:10)
[2020-07-02] MEDS: CefTRIAXone 2gm/D5W 50ml BAG 50 ML IV SCH (23:17)
--- NOTE | 2020-07-02 23:24 | NUR ---
have attempted to check patient's glucose level per etoh protocol but patient has refused. at this time, is resting quietly but refused again.
--- NOTE | 2020-07-02 23:49 | NUR ---
2200 NOT ABLE TO OBTAIN PATIENT'S 2200 VITAL SIGNS, PATIENT REFUSED AND IS VERY AGGITATED. ALSO ATTEMPTED TO PUT TELEMETRY BACK ONTO PATIENT AND HAD REFUSED THIS ALSO. WILL CALL HOSPITALIST AND SEE IF WE CAN DC THE TELE ORDER.
[2020-07-03] MEDS: LORazepam 2 mg/ml vial IV PRN ×3 (00:38→21:04)
[2020-07-03] MEDS ORDERED: LORazepam 2 mg/ml vial IM ONE (02:10)
--- NOTE | 2020-07-03 02:25 | NUR ---
PATIENT VERY IMPULSIVE, CONSTANTLY ATTEMPTING TO GET OUT OF BED, WANTING TO GO OUTSIDE. BECOMING AGGITATED. RECEIVED ORDERS FOR 2MG ATIVAN IM NOW, 5MG HALDOL IM NOW AND BILATERAL WRIST RESTRAINTS. WHEN PATIENT HAS CALMED DOWN DR. KHALIL TELE PLACED BACK ON PATIENT. SITTER AT BEDSIDE FOR PATIENT SAFETY
--- NOTE | 2020-07-03 03:06 | NUR ---
ADMINISTERED ATIVAN BY CLICKING VIAL DROPPED ON FLOOR AND BROKE SO WAS UNABLE TO SCAN. PATIENT RESTING QUIETLY NOW, CONTINUOUS PULSE OX IN USE TO MONITOR 02 SATS. RESTRAINT ORDER REC'D BUT NOT IN USE AT THIS TIME. SITTER REMAINS AT BEDSIDE
--- NOTE | 2020-07-03 06:36 | NUR ---
Problems reprioritized. Patient report given, questions answered & plan of care reviewed with FARHANA GRACE.
--- NOTE | 2020-07-03 06:47 | NUR ---
Patient in room ORTHO 4010. I have received report from Aubrie GRACE and had the opportunity to ask questions and assume patient care.
[2020-07-03 06:48] LABS: EOSINOPHILS # (AUTO) 0.1 X10'3 (0-0.9); EOSINOPHILS % (AUTO) 2.8 % (0-6); HEMATOCRIT 28.1 % (35.0-45.0); HEMOGLOBIN 9.4 g/dl (12.0-16.0); LYMPHOCYTES # (AUTO) 0.5 X10'3 (1.1-4.8); LYMPHOCYTES % (AUTO) 11.4 % (21-51); MEAN CORPUSCULAR HEMOGLOBIN 31.8 PG (27.0-31.0); MEAN CORPUSCULAR HGB CONC 33.5 g/dL (33.0-36.5); MEAN PLATELET VOLUME 8.5 FL (7.4-10.4); MONOCYTES # (AUTO) 0.5 X10'3 (0-0.9); MONOCYTES % (AUTO) 12.5 % (2-12); NEUTROPHILS # (AUTO) 3.2 X10'3 (1.8-7.7); NEUTROPHILS % (AUTO) 72.3 % (42-75); PLATELET COUNT 73 X10'3 (140-440); RED BLOOD COUNT 2.96 X10'6 (4.20-5.60); RED CELL DISTRIBUTION WIDTH 18.6 % (11.5-14.5); WHITE BLOOD COUNT 4.4 X10'3 (4.5-11.0)
--- NOTE | 2020-07-03 07:00 | NUR ---
Patient was aslept with the sitter at bedside when I made my initial rounds. Patient breathing normally, not in distress. Night nurse said during report that patient pulled her IV and had to get an order for IM Ativan to administer to patient for anxiety/agitation.
[2020-07-03] MEDS: normal saline 1000ml 1,000 ML IV SCH ×2 (07:05→19:34)
[2020-07-03 07:07] LABS: ALANINE AMINOTRANSFERASE 77 U/L (12-78); ALBUMIN 2.9 G/DL (3.4-5.0); ALBUMIN/GLOBULIN RATIO 0.8 (1.1-1.5); ALKALINE PHOSPHATASE 141 IU/L (46-116); ANION GAP 11 (8-16); ASPARTATE AMINO TRANSFERASE 134 U/L (10-37); BILIRUBIN,TOTAL 0.5 MG/DL (0.1-1.0); BLOOD UREA NITROGEN 5 MG/DL (7-18); BUN/CREATININE RATIO 9.8 (6.6-38.0); CALCIUM 9.8 MG/DL (8.5-10.1); CHLORIDE 102 MMOL/L (99-107); CREATININE 0.51 MG/DL (0.40-0.90); GLUCOSE 111 MG/DL (70-104); LIPASE 186 U/L (73-393); MAGNESIUM 1.4 MG/DL (1.5-2.4); POTASSIUM 3.5 MMOL/L (3.5-5.1); SODIUM 139 MMOL/L (135-145); TOTAL CARBON DIOXIDE 26.1 MMOL/L (24-32); TOTAL PROTEIN 6.7 G/DL (6.4-8.2); eGFR > 90 ML/MIN
--- NOTE | 2020-07-03 07:27 | NUR ---
Patient blood sugar was 71mg/dl this am, she woke up after I poked her finger for sugar check. Patient was told her sugar on the low side, I gave patient orange juice and her breakfast tray was served. Upon assessment, patient is a little sleepy, her speech slurred, she was shaky, oriented to name, date, but not event. She easily gets distracted during my conversation with her. She kept saying she wants to go outside the street to smoke, I told her that is not safe thing to do and that this is a non-smoking facility. Patient currently receiving Nicotine patch. Explained to patient that she is going through alcohol withdrawal at this time so it is not safe for her to leave. Patient was reluctant to verbalize understanding and gets distracted easily. Anater was at bedside during my interaction with patient.
[2020-07-03] MEDS: lactobacillus rhamnosus 10,000 MMU CELLS/CAPSULE PO SCH ×2 (07:40→20:53)
[2020-07-03] MEDS: docusate sod 100mg capsule PO SCH ×2 (07:40→20:53)
[2020-07-03] MEDS: nicotine 14mg patch - 24hr TD SCH (07:40)
[2020-07-03] MEDS: naltrexone 50mg tablet PO SCH (07:40)
[2020-07-03 07:53] LABS: ANISOCYTOSIS 2+; PLATELET ESTIMATE DECREASED; POLYCHROMASIA 1+
[2020-07-03] MEDS: K and/or MAG REPLACEMENT MC SCH (08:00)
[2020-07-03 10:00] VITALS: BP 150/83
--- NOTE | 2020-07-03 14:18 | NUR ---
Patient so far has not been trying to get out of bed although she can be impulsive at times. Patient allowed me to put a new peripheral IV this am, she ate her meal, and so far has not pulled out IV catheter. Sitter at bedside present.
[2020-07-03 18:00] VITALS: BP 128/75
--- NOTE | 2020-07-03 18:15 | NUR ---
Problems reprioritized. Patient report given, questions answered & plan of care reviewed with Aubrie GRACE.
--- NOTE | 2020-07-03 19:26 | NUR ---
Patient in room ORTHO 4010. I have received report from FARHANA GRACE and had the opportunity to ask questions and assume patient care.
[2020-07-03] MEDS: folic acid 1mg/0.2ml inj IV SCH (20:53)
[2020-07-03] MEDS: temazepam 15mg capsule PO PRN (20:53)
[2020-07-03] MEDS: thiamine inj. 100 MG in normal saline 100ml IV soln 100 ML IV SCH (20:53)
[2020-07-03 22:00] VITALS: BP 147/90
[2020-07-03] MEDS: CefTRIAXone 2gm/D5W 50ml BAG 50 ML IV SCH (22:18)
[2020-07-04 06:00] VITALS: BP 154/94
--- NOTE | 2020-07-04 06:00 | NUR ---
Patient in room ORTHO 4010. I have received report from Aubrie GRACE and had the opportunity to ask questions and assume patient care.
[2020-07-04 06:49] LABS: BASOPHILS # (AUTO) 0.1 X10'3 (0-0.2); BASOPHILS % (AUTO) 1.4 % (0-1); EOSINOPHILS # (AUTO) 0.1 X10'3 (0-0.9); EOSINOPHILS % (AUTO) 3.3 % (0-6); HEMATOCRIT 27.2 % (35.0-45.0); LYMPHOCYTES # (AUTO) 0.6 X10'3 (1.1-4.8); LYMPHOCYTES % (AUTO) 14.9 % (21-51); MEAN CORPUSCULAR HEMOGLOBIN 31.7 PG (27.0-31.0); MEAN CORPUSCULAR HGB CONC 32.9 g/dL (33.0-36.5); MEAN CORPUSCULAR VOLUME 96.3 FL (78-98); MEAN PLATELET VOLUME 8.3 FL (7.4-10.4); MONOCYTES # (AUTO) 0.6 X10'3 (0-0.9); MONOCYTES % (AUTO) 16.2 % (2-12); NEUTROPHILS # (AUTO) 2.4 X10'3 (1.8-7.7); NEUTROPHILS % (AUTO) 64.2 % (42-75); PLATELET COUNT 101 X10'3 (140-440); RED BLOOD COUNT 2.83 X10'6 (4.20-5.60); RED CELL DISTRIBUTION WIDTH 19.4 % (11.5-14.5); WHITE BLOOD COUNT 3.8 X10'3 (4.5-11.0)
[2020-07-04 06:59] LABS: ALANINE AMINOTRANSFERASE 53 U/L (12-78); ALBUMIN 2.7 G/DL (3.4-5.0); ALBUMIN/GLOBULIN RATIO 0.8 (1.1-1.5); ALKALINE PHOSPHATASE 126 IU/L (46-116); ANION GAP 12 (8-16); ASPARTATE AMINO TRANSFERASE 71 U/L (10-37); BILIRUBIN,TOTAL 0.4 MG/DL (0.1-1.0); BLOOD UREA NITROGEN 4 MG/DL (7-18); BUN/CREATININE RATIO 10.3 (6.6-38.0); CALCIUM 8.7 MG/DL (8.5-10.1); CHLORIDE 105 MMOL/L (99-107); CREATININE 0.39 MG/DL (0.40-0.90); GLUCOSE 101 MG/DL (70-104); LIPASE 181 U/L (73-393); MAGNESIUM 1.3 MG/DL (1.5-2.4); POTASSIUM 3.4 MMOL/L (3.5-5.1); SODIUM 142 MMOL/L (135-145); TOTAL CARBON DIOXIDE 25.3 MMOL/L (24-32); TOTAL PROTEIN 6.2 G/DL (6.4-8.2); eGFR > 90 ML/MIN
--- NOTE | 2020-07-04 07:05 | NUR ---
Problems reprioritized. Patient report given, questions answered & plan of care reviewed with GINA RN.
[2020-07-04] MEDS: docusate sod 100mg capsule PO SCH ×2 (07:08→19:10)
[2020-07-04] MEDS: lactobacillus rhamnosus 10,000 MMU CELLS/CAPSULE PO SCH ×2 (07:08→19:09)
[2020-07-04] MEDS: nicotine 14mg patch - 24hr TD SCH (07:09)
[2020-07-04] MEDS: LORazepam 2 mg/ml vial IV PRN ×3 (07:43→19:08)
[2020-07-04] MEDS: naltrexone 50mg tablet PO SCH (08:00)
--- NOTE | 2020-07-04 08:50 | NUR ---
Paged Dr Tam: PAGER ID: [phone] MESSAGE: [phone] Uzair: Pt's K is 3.4 this AM. Pharmacy says electrolyte protocol is - would you like to re-order it? Thanks! Zuleika GRACE [phone]
[2020-07-04] MEDS ORDERED: magnesium 2GM in 50ml NS 50 ML IV PRN (09:20)
[2020-07-04] MEDS ORDERED: potassium Cl 20 mEq SR tablet PO PRN (09:20)
[2020-07-04] MEDS ORDERED: magnesium 4gm in 100ml NS 100 ML IV PRN (09:20)
[2020-07-04] MEDS ORDERED: potassium Cl 40MEQ/1/2NS 520ml 520 ML IV PRN ×2 (09:20)
[2020-07-04 10:00] VITALS: BP 137/81
--- NOTE | 2020-07-04 12:05 | NUR ---
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 PO improving to 75% avg most regular diet meals past 1/5 days up from initial 0-25% on admit currently meeting minimum needs. Receiving thiamin and folic acid; RD d/w RN regarding MVI if MD agreeable given macrocytic anemia DX in MD note. Sepsis per MD note yet sepsis score 0 per EMR and per ID note likely contaminate. LBM 07/02 x2 w/ daily constipation noted likely error receiving routine colace. Mg 1.3 and K 3.4; RD d/w RN regarding electrolyte replacement per protocol if MD agreeable. Will continue to monitor. Rec: 1. continue regular diet 2. thiamin, folic, MVI for etoh and macrocytic anemia 3. routine bowel care 4. scaled wt this admit Addendum: 07/04/20 at [address] Amended: Links added.
[2020-07-04] MEDS: magnesium Cl slow-release 64mg tablet PO PRN ×2 (12:20→19:08)
[2020-07-04] MEDS: potassium Cl 20 mEq SR tablet PO PRN ×2 (12:20→19:09)
[2020-07-04] MEDS: normal saline 1000ml 1,000 ML IV SCH ×3 (16:00→23:05)
[2020-07-04 18:00] VITALS: BP 134/78
--- NOTE | 2020-07-04 18:00 | NUR ---
Problems reprioritized. Patient report given, questions answered & plan of care reviewed with Megan GRACE.
--- NOTE | 2020-07-04 18:38 | NUR ---
Patient in room ORTHO 4010. I have received report from LESLY FUENTES and had the opportunity to ask questions and assume patient care.
[2020-07-04] MEDS: thiamine inj. 100 MG in normal saline 100ml IV soln 100 ML IV SCH (19:09)
[2020-07-04] MEDS: folic acid 1mg/0.2ml inj IV SCH (19:09)
[2020-07-04] MEDS: K and/or MAG REPLACEMENT MC SCH (19:20)
[2020-07-04] MEDS: CefTRIAXone 2gm/D5W 50ml BAG 50 ML IV SCH (21:16)
[2020-07-04 22:00] VITALS: BP 127/77
[2020-07-05] MEDS: temazepam 15mg capsule PO PRN ×2 (00:50→21:28)
[2020-07-05] MEDS: LORazepam 2 mg/ml vial IV PRN ×4 (03:23→19:29)
[2020-07-05] MEDS: normal saline 1000ml 1,000 ML IV SCH ×2 (05:58→17:25)
--- NOTE | 2020-07-05 06:23 | NUR ---
Problems reprioritized. Patient report given, questions answered & plan of care reviewed with LESLY PERRY.
--- NOTE | 2020-07-05 06:25 | NUR ---
Patient in room ORTHO 4010. I have received report from KASSANDRA GRACE and had the opportunity to ask questions and assume patient care.
[2020-07-05 06:33] VITALS: BP 142/80
[2020-07-05] MEDS: docusate sod 100mg capsule PO SCH ×2 (07:38→19:18)
[2020-07-05] MEDS: lactobacillus rhamnosus 10,000 MMU CELLS/CAPSULE PO SCH ×2 (07:38→19:16)
[2020-07-05] MEDS: naltrexone 50mg tablet PO SCH (07:39)
[2020-07-05] MEDS: nicotine 14mg patch - 24hr TD SCH (07:41)
[2020-07-05] MEDS: K and/or MAG REPLACEMENT MC SCH ×2 (08:00→20:00)
[2020-07-05 09:06] LABS: BASOPHILS # (AUTO) 0.1 X10'3 (0-0.2); BASOPHILS % (AUTO) 2.1 % (0-1); EOSINOPHILS % (AUTO) 0.6 % (0-6); HEMATOCRIT 27.5 % (35.0-45.0); MEAN CORPUSCULAR HEMOGLOBIN 31.5 PG (27.0-31.0); MEAN CORPUSCULAR HGB CONC 32.6 g/dL (33.0-36.5); MEAN CORPUSCULAR VOLUME 96.5 FL (78-98); MEAN PLATELET VOLUME 8.3 FL (7.4-10.4); MONOCYTES # (AUTO) 0.7 X10'3 (0-0.9); MONOCYTES % (AUTO) 17.3 % (2-12); NEUTROPHILS # (AUTO) 2.2 X10'3 (1.8-7.7); PLATELET COUNT 148 X10'3 (140-440); RED BLOOD COUNT 2.85 X10'6 (4.20-5.60); RED CELL DISTRIBUTION WIDTH 20.1 % (11.5-14.5)
[2020-07-05 09:31] LABS: ALANINE AMINOTRANSFERASE 42 U/L (12-78); ALBUMIN 2.7 G/DL (3.4-5.0); ALBUMIN/GLOBULIN RATIO 0.8 (1.1-1.5); ALKALINE PHOSPHATASE 115 IU/L (46-116); ANION GAP 11 (8-16); ASPARTATE AMINO TRANSFERASE 44 U/L (10-37); BILIRUBIN,TOTAL 0.4 MG/DL (0.1-1.0); BLOOD UREA NITROGEN 6 MG/DL (7-18); BUN/CREATININE RATIO 12.5 (6.6-38.0); CALCIUM 8.5 MG/DL (8.5-10.1); CHLORIDE 104 MMOL/L (99-107); CREATININE 0.48 MG/DL (0.40-0.90); GLUCOSE 154 MG/DL (70-104); POTASSIUM 3.6 MMOL/L (3.5-5.1); SODIUM 139 MMOL/L (135-145); TOTAL PROTEIN 6.3 G/DL (6.4-8.2); eGFR > 90 ML/MIN
[2020-07-05 11:47] VITALS: BP 126/81
[2020-07-05 12:31] LABS: ANISOCYTOSIS 3+; PLATELET ESTIMATE NORMAL; TOTAL CELLS COUNTED 100
[2020-07-05 12:32] LABS: HYPOCHROMASIA 1+; SCHISTOCYTES FEW
[2020-07-05] MEDS: HYDROcodone/acetaminophen 10/325mg tab PO PRN (15:54)
[2020-07-05 18:00] VITALS: BP 171/85
--- NOTE | 2020-07-05 18:03 | NUR ---
Problems reprioritized. Patient report given, questions answered & plan of care reviewed with Megan GRACE.
--- NOTE | 2020-07-05 18:41 | NUR ---
Patient in room ORTHO 4010. I have received report from john Dahl and had the opportunity to ask questions and assume patient care.
[2020-07-05] MEDS: folic acid 1mg/0.2ml inj IV SCH (19:17)
[2020-07-05] MEDS: thiamine inj. 100 MG in normal saline 100ml IV soln 100 ML IV SCH (19:18)
[2020-07-05] MEDS: HYDROcodone/acetaminophen 5mg/325mg tablet PO PRN (21:28)
[2020-07-05] MEDS: CefTRIAXone 2gm/D5W 50ml BAG 50 ML IV SCH (21:29)
[2020-07-05 22:00] VITALS: BP 138/81
[2020-07-06] MEDS: LORazepam 2 mg/ml vial IV PRN ×7 (00:37→20:13)
[2020-07-06] MEDS: normal saline 1000ml 1,000 ML IV SCH ×3 (04:05→22:25)
[2020-07-06] MEDS: HYDROcodone/acetaminophen 5mg/325mg tablet PO PRN (05:54)
--- NOTE | 2020-07-06 06:10 | NUR ---
Problems reprioritized. Patient report given, questions answered & plan of care reviewed with LESLY GUAMAN.
--- NOTE | 2020-07-06 06:13 | NUR ---
Patient in room ORTHO 4010. I have received report from LESLY Guzman and had the opportunity to ask questions and assume patient care.
[2020-07-06 06:38] LABS: BASOPHILS # (AUTO) 0.1 X10'3 (0-0.2); BASOPHILS % (AUTO) 1.2 % (0-1); EOSINOPHILS % (AUTO) 0.6 % (0-6); HEMOGLOBIN 9.1 g/dl (12.0-16.0); LYMPHOCYTES # (AUTO) 1.1 X10'3 (1.1-4.8); LYMPHOCYTES % (AUTO) 21.2 % (21-51); MEAN CORPUSCULAR HEMOGLOBIN 32.3 PG (27.0-31.0); MEAN CORPUSCULAR HGB CONC 33.6 g/dL (33.0-36.5); MEAN CORPUSCULAR VOLUME 96.3 FL (78-98); MEAN PLATELET VOLUME 8.4 FL (7.4-10.4); MONOCYTES # (AUTO) 1.1 X10'3 (0-0.9); MONOCYTES % (AUTO) 20.4 % (2-12); NEUTROPHILS % (AUTO) 56.6 % (42-75); PLATELET COUNT 226 X10'3 (140-440); RED BLOOD COUNT 2.81 X10'6 (4.20-5.60); RED CELL DISTRIBUTION WIDTH 19.9 % (11.5-14.5); WHITE BLOOD COUNT 5.3 X10'3 (4.5-11.0)
[2020-07-06 07:00] VITALS: BP 153/102
[2020-07-06 07:08] LABS: ALANINE AMINOTRANSFERASE 37 U/L (12-78); ALBUMIN/GLOBULIN RATIO 0.8 (1.1-1.5); ANION GAP 9 (8-16); ASPARTATE AMINO TRANSFERASE 26 U/L (10-37); BILIRUBIN,TOTAL 0.3 MG/DL (0.1-1.0); BLOOD UREA NITROGEN 7 MG/DL (7-18); BUN/CREATININE RATIO 15.2 (6.6-38.0); CALCIUM 8.9 MG/DL (8.5-10.1); CHLORIDE 104 MMOL/L (99-107); CREATININE 0.46 MG/DL (0.40-0.90); GLUCOSE 98 MG/DL (70-104); MAGNESIUM 1.7 MG/DL (1.5-2.4); PHOSPHORUS 3.7 MG/DL (2.3-4.5); POTASSIUM 3.4 MMOL/L (3.5-5.1); SODIUM 137 MMOL/L (135-145); TOTAL CARBON DIOXIDE 24.4 MMOL/L (24-32); TOTAL PROTEIN 6.7 G/DL (6.4-8.2); eGFR > 90 ML/MIN
[2020-07-06 07:13] LABS: ALKALINE PHOSPHATASE 103 IU/L (46-116)
[2020-07-06] MEDS: K and/or MAG REPLACEMENT MC SCH ×2 (08:00→18:52)
[2020-07-06] MEDS: docusate sod 100mg capsule PO SCH ×2 (08:27→20:00)
[2020-07-06] MEDS: lactobacillus rhamnosus 10,000 MMU CELLS/CAPSULE PO SCH ×2 (08:27→20:14)
[2020-07-06] MEDS: naltrexone 50mg tablet PO SCH (08:27)
[2020-07-06] MEDS: nicotine 14mg patch - 24hr TD SCH (08:28)
[2020-07-06] MEDS: potassium Cl 20 mEq SR tablet PO PRN ×3 (08:28→17:46)
[2020-07-06] MEDS: ondansetron/PF 4mg/2ml inj IV PRN (08:35)
[2020-07-06 09:14] LABS: TOTAL CELLS COUNTED 100
[2020-07-06 09:15] LABS: ANISOCYTOSIS 2+; PLATELET ESTIMATE NORMAL
[2020-07-06 09:16] LABS: POLYCHROMASIA FEW
[2020-07-06 11:15] VITALS: BP 154/90
[2020-07-06] MEDS: HYDROcodone/acetaminophen 10/325mg tab PO PRN ×2 (12:40→20:13)
[2020-07-06 18:00] VITALS: BP 168/96
--- NOTE | 2020-07-06 18:33 | NUR ---
Problems reprioritized. Patient report given, questions answered & plan of care reviewed with LESLY Jonas.
[2020-07-06] MEDS: folic acid 1mg/0.2ml inj IV SCH (20:12)
[2020-07-06] MEDS: thiamine inj. 100 MG in normal saline 100ml IV soln 100 ML IV SCH (20:12)
--- NOTE | 2020-07-06 20:48 | NUR ---
REPORT GIVEN TO LESLY CANNON.
[2020-07-06 22:00] VITALS: BP 152/95
[2020-07-06] MEDS: CefTRIAXone 2gm/D5W 50ml BAG 50 ML IV SCH (22:25)
[2020-07-07] MEDS: HYDROcodone/acetaminophen 5mg/325mg tablet PO PRN ×2 (00:41→06:48)
[2020-07-07] MEDS: LORazepam 2 mg/ml vial IV PRN ×3 (03:36→12:37)
[2020-07-07 06:00] VITALS: BP 195/105
--- NOTE | 2020-07-07 06:32 | NUR ---
Problems reprioritized. Patient report given, questions answered & plan of care reviewed with LESLY LEE.
[2020-07-07 06:44] VITALS: BP 140/95
[2020-07-07 06:50] LABS: EOSINOPHILS % (AUTO) 0.5 % (0-6); MONOCYTES # (AUTO) 1.4 X10'3 (0-0.9); WHITE BLOOD COUNT 5.3 X10'3 (4.5-11.0)
[2020-07-07 06:52] LABS: BASOPHILS % (AUTO) 0.6 % (0-1); HEMATOCRIT 28.5 % (35.0-45.0); HEMOGLOBIN 9.6 g/dl (12.0-16.0); LYMPHOCYTES % (AUTO) 18.5 % (21-51); MEAN CORPUSCULAR HEMOGLOBIN 32.4 PG (27.0-31.0); MEAN CORPUSCULAR HGB CONC 33.6 g/dL (33.0-36.5); MEAN CORPUSCULAR VOLUME 96.4 FL (78-98); MEAN PLATELET VOLUME 8.6 FL (7.4-10.4); MONOCYTES % (AUTO) 27.5 % (2-12); NEUTROPHILS # (AUTO) 2.8 X10'3 (1.8-7.7); NEUTROPHILS % (AUTO) 52.9 % (42-75); PLATELET COUNT 325 X10'3 (140-440); RED BLOOD COUNT 2.96 X10'6 (4.20-5.60); RED CELL DISTRIBUTION WIDTH 19.8 % (11.5-14.5)
[2020-07-07 07:25] LABS: ALANINE AMINOTRANSFERASE 34 U/L (12-78); ALBUMIN 3.3 G/DL (3.4-5.0); ALBUMIN/GLOBULIN RATIO 0.8 (1.1-1.5); ALKALINE PHOSPHATASE 108 IU/L (46-116); ANION GAP 13 (8-16); ASPARTATE AMINO TRANSFERASE 21 U/L (10-37); BILIRUBIN,TOTAL 0.3 MG/DL (0.1-1.0); BLOOD UREA NITROGEN 7 MG/DL (7-18); BUN/CREATININE RATIO 13.7 (6.6-38.0); CALCIUM 9.3 MG/DL (8.5-10.1); CHLORIDE 104 MMOL/L (99-107); CREATININE 0.51 MG/DL (0.40-0.90); GLUCOSE 109 MG/DL (70-104); POTASSIUM 3.9 MMOL/L (3.5-5.1); SODIUM 140 MMOL/L (135-145); TOTAL CARBON DIOXIDE 23.1 MMOL/L (24-32); TOTAL PROTEIN 7.4 G/DL (6.4-8.2); eGFR > 90 ML/MIN
[2020-07-07 07:46] LABS: ANISOCYTOSIS 2+; PLATELET ESTIMATE NORMAL; TOTAL CELLS COUNTED 100
[2020-07-07 07:47] LABS: LARGE PLATELETS FEW; TOXIC GRANULATION 1+
[2020-07-07 07:48] LABS: STOMATOCYTES 1+
[2020-07-07] MEDS: K and/or MAG REPLACEMENT MC SCH ×2 (08:00→20:00)
[2020-07-07] MEDS: naltrexone 50mg tablet PO SCH (09:13)
[2020-07-07] MEDS: docusate sod 100mg capsule PO SCH ×2 (09:13→21:23)
[2020-07-07] MEDS: lactobacillus rhamnosus 10,000 MMU CELLS/CAPSULE PO SCH ×2 (09:13→21:23)
[2020-07-07] MEDS: nicotine 14mg patch - 24hr TD SCH (09:14)
[2020-07-07] MEDS: normal saline 1000ml 1,000 ML IV SCH ×2 (11:05→21:24)
[2020-07-07] MEDS ORDERED: RISP1TAB98 PO (14:54)
[2020-07-07] MEDS ORDERED: TRAM50TA2 PO (14:54)
[2020-07-07] MEDS ORDERED: LORA-269 PO (14:54)
--- NOTE | 2020-07-07 15:21 | NUR ---
RN informed by Maggie PHILLIPS, that Pt is not going to discharge tonight and that she is going to be evaluated for placement at a crisis /rehab facility. Maggie will be putting information in her note.
[2020-07-07] MEDS: HYDROcodone/acetaminophen 10/325mg tab PO PRN (15:48)
[2020-07-07] MEDS: LORazepam 1 MG tablet PO PRN (16:47)
[2020-07-07 18:00] VITALS: BP 120/85
[2020-07-07] MEDS: thiamine inj. 100 MG in normal saline 100ml IV soln 100 ML IV SCH (20:00)
[2020-07-07] MEDS ORDERED: risperiDONE 0.25mg tablet PO SCH (21:00)
[2020-07-07] MEDS: folic acid 1mg/0.2ml inj IV SCH (21:23)
[2020-07-07] MEDS: CefTRIAXone 2gm/D5W 50ml BAG 50 ML IV SCH (21:23)
[2020-07-07 22:00] VITALS: BP 166/97
[2020-07-08] MEDS: HYDROcodone/acetaminophen 10/325mg tab PO PRN ×2 (00:50→07:06)
[2020-07-08] MEDS: normal saline 1000ml 1,000 ML IV SCH (05:23)
--- NOTE | 2020-07-08 06:28 | NUR ---
Problems reprioritized. Patient report given, questions answered & plan of care reviewed with LESLY YEBOAH.
--- NOTE | 2020-07-08 06:53 | NUR ---
Patient in room ORTHO 4010. I have received report from Kojo GRACE and had the opportunity to ask questions and assume patient care.
[2020-07-08 07:00] VITALS: BP 145/88
[2020-07-08] MEDS: lactobacillus rhamnosus 10,000 MMU CELLS/CAPSULE PO SCH (07:05)
[2020-07-08] MEDS: naltrexone 50mg tablet PO SCH (07:05)
[2020-07-08] MEDS: docusate sod 100mg capsule PO SCH (07:05)
[2020-07-08] MEDS: nicotine 14mg patch - 24hr TD SCH (07:06)
[2020-07-08 07:11] LABS: BASOPHILS % (AUTO) 0.3 % (0-1); EOSINOPHILS % (AUTO) 0.5 % (0-6); HEMATOCRIT 27.5 % (35.0-45.0); HEMOGLOBIN 9.1 g/dl (12.0-16.0); LYMPHOCYTES # (AUTO) 1.1 X10'3 (1.1-4.8); LYMPHOCYTES % (AUTO) 25.7 % (21-51); MEAN CORPUSCULAR HEMOGLOBIN 32.2 PG (27.0-31.0); MEAN CORPUSCULAR HGB CONC 32.9 g/dL (33.0-36.5); MEAN CORPUSCULAR VOLUME 97.6 FL (78-98); MONOCYTES # (AUTO) 1.3 X10'3 (0-0.9); MONOCYTES % (AUTO) 31.7 % (2-12); NEUTROPHILS # (AUTO) 1.7 X10'3 (1.8-7.7); NEUTROPHILS % (AUTO) 41.8 % (42-75); PLATELET COUNT 335 X10'3 (140-440); RED BLOOD COUNT 2.82 X10'6 (4.20-5.60); RED CELL DISTRIBUTION WIDTH 19.1 % (11.5-14.5); WHITE BLOOD COUNT 4.1 X10'3 (4.5-11.0)
[2020-07-08 07:35] LABS: ALANINE AMINOTRANSFERASE 24 U/L (12-78); ALBUMIN 2.9 G/DL (3.4-5.0); ALBUMIN/GLOBULIN RATIO 0.8 (1.1-1.5); ALKALINE PHOSPHATASE 92 IU/L (46-116); ANION GAP 9 (8-16); ASPARTATE AMINO TRANSFERASE 18 U/L (10-37); BILIRUBIN,TOTAL 0.2 MG/DL (0.1-1.0); BLOOD UREA NITROGEN 10 MG/DL (7-18); BUN/CREATININE RATIO 20.8 (6.6-38.0); CHLORIDE 108 MMOL/L (99-107); CREATININE 0.48 MG/DL (0.40-0.90); GLUCOSE 97 MG/DL (70-104); POTASSIUM 4.2 MMOL/L (3.5-5.1); SODIUM 142 MMOL/L (135-145); TOTAL CARBON DIOXIDE 25.4 MMOL/L (24-32); TOTAL PROTEIN 6.7 G/DL (6.4-8.2); eGFR > 90 ML/MIN
[2020-07-08] MEDS ORDERED: CEFD300C3 PO (07:43)
[2020-07-08] MEDS: K and/or MAG REPLACEMENT MC SCH (08:00)
[2020-07-08 09:54] LABS: ANISOCYTOSIS 2+; PLATELET ESTIMATE NORMAL; TOTAL CELLS COUNTED 100
[2020-07-08 10:00] VITALS: BP 124/76
--- NOTE | 2020-07-08 10:17 | NUR ---
PAGER ID: [phone] MESSAGE: Flor [phone] Please call re: Uzair possible leaving without going to facility do you want to send her with [facility] vin[facility] Addendum: 07/08/20 at 1022 by Chiara Bergeron RN PAGER ID: [phone] MESSAGE: Flor [phone] Re: brien Dunne 4010A please call re: [facility]ando vincent for discharge and possibly will be leaving without going to [facility] residential
[2020-07-08] MEDS: LORazepam 1 MG tablet PO PRN (10:40)
--- NOTE | 2020-07-08 14:00 | NUR ---
Patient discharge instructions reviewed with patient and patient verbalized understanding. 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 Patients IV dc'd cannula intact. Patients Tele Dc'd. Patient taken to Lobby where person from [facility] was waiting to pick her up.
[2020-07-08] MEDS ORDERED: risperiDONE 0.5mg tablet PO SCH (21:00)
== END 2020-07-08 13:55 | disposition home or self-care (01) | DRG 720 ==
LOC: ER 17:37 → ED HOLD 23:04 → ORTHO 4S 06-30 07:35
PROVIDERS: ADMIT Internal Medicine; ATTEND Family Medicine
DX: A40.3 Sepsis due to Streptococcus pneumoniae (principal); D69.59 Other secondary thrombocytopenia; D63.8 Anemia in other chronic diseases classified elsewhere; E87.6 Hypokalemia; F17.290 Nicotine dependence, other tobacco product, uncomplicated; F41.9 Anxiety disorder, unspecified; Z20.822 Contact with and (suspected) exposure to COVID-19; F10.20 Alcohol dependence, uncomplicated; R44.0 Auditory hallucinations; R44.1 Visual hallucinations; J32.9 Chronic sinusitis, unspecified; Z59.0 Homelessness; Z79.899 Other long term (current) drug therapy
CPT/HCPCS: 36415; 70450; 71045; 80053; 81001; 81025; 82948; 83605; 83690; 83735; 84100; 84145; 85007; 85008; 85025; 85610; 85730; 87040; 87077; 87081; 87088; 87186; 87426; 93005; 96361; 96374; 96375; 97110; 97116; 97161; 97530; 99285; G0378; J0696; J1630; J2060; J2405; J3411; J3490; J7030; J7050; J7120